=== PATIENT | female | born 1935 | race Caucasian/White ===

== ENCOUNTER 2018-02-14 17:14 | Emergency (ER) | payer MEDICARE, OTHER ==
[~2018-02-14] VITALS: Ht 147.3 cm; Wt 49.0 kg
[~2018-02-14 17:14] MED LIST: ASPI-1152 GT; ATRO2DRO4 LEFTEYE; BRIN10DR EACHEYE; BUSP5TAB PO; Blood Sugar Diagnostic IN; CARB200T39 GT; CHOL100044 PO; CYAN500T4 PO; DONE5TAB34 GT; ENAL10TA GT; INSU100I19 SQ; MEMA1TAB PO; NITR100C6 GT; NUT.100029 GT; POTA20PA34 GT; TIMO5DRO18 EACHEYE
--- NOTE | 2018-02-14 17:40 | NUR ---
BIB DAUGHTER C/O CONGESTION X 1 MONTH, WORSENING TODAY. VSS. WAITING FOR EVAL. FAMILY REMAINS AT BS. IV ACCESS STARTED. SAFETY AND COMFORT MEASURES PROVIDED. WILL MONITOR.
--- NOTE | 2018-02-14 19:01 | NUR ---
REPORT RECEIVED FROM RADHA ANTONIO FOR BROWN.
--- NOTE | 2018-02-14 20:55 | NUR ---
IV removed. Catheter intact and site benign. Pressure and 4x4 applied to site. No bleeding noted. Patient discharged to home in stable condition. Written and verbal after care instructions given. Patient verbalizes understanding of instruction. Ambulatory ambulatory with a steady gait.
[2018-02-14 20:57] VITALS: BP 128/83
[2018-05-23] MEDS ORDERED: AMLO2.5T3 GT (22:48)
== END 2018-02-14 20:57 | disposition home or self-care (01) ==
LOC: ER 17:15
DX: G93.40 Encephalopathy, unspecified (principal); R05 Cough; G30.9 Alzheimer's disease, unspecified; F02.80 Dementia in other diseases classified elsewhere, unspecified severity, without behavioral disturbance, psychotic disturbance, mood disturbance, and anxiety; E11.9 Type 2 diabetes mellitus without complications; I10 Essential (primary) hypertension; Z79.4 Long term (current) use of insulin; Z79.82 Long term (current) use of aspirin; Z90.710 Acquired absence of both cervix and uterus
CPT/HCPCS: 71045-TC; A4606; Z7610

== ENCOUNTER 2018-05-21 16:30 | Inpatient (IN) | payer MEDICARE, MEDICAID ==
[~2018-05-21] VITALS: Ht 149.9 cm; Wt 46.3 kg
--- NOTE | 2018-05-21 16:30 | NUR ---
NAUSEA AND VOMITING SINCE LAST NIGHT, NAD NOTED, VSS, RESP EVEN AND UNLABORED. PT WAS PUT ON MONITOR, AT BS.
[2018-05-21 17:53] LABS: BASOPHILS % (AUTO) 0.2 % (0.0-2.0); HEMATOCRIT 40 % (33-45); HEMOGLOBIN 13.2 g/dL (11.5-14.8); LYMPHOCYTES # (AUTO) 1.1 /CMM (0.8-4.8); LYMPHOCYTES % (AUTO) 6.7 % (20.0-44.0); MEAN CORPUSCULAR HEMOGLOBIN 32 PG (26.0-33.0); MEAN CORPUSCULAR HGB CONC 33 g/dl (31.0-36.0); MEAN CORPUSCULAR VOLUME 98 fL (82-100); MONOCYTES # (AUTO) 0.9 /CMM (0.1-1.30); MONOCYTES % (AUTO) 5.4 % (2.0-12.0); NEUTROPHILS # (AUTO) 14.8 /CMM (1.8-8.9); NEUTROPHILS % (AUTO) 87.7 % (43.0-81.0); PLATELET COUNT (AUTO) 227 /CMM (150-450); RDW COEFFICIENT OF VARIATION 14.2 (11.5-15.0); RED BLOOD CELL COUNT(AUTO) 4.13 MIL/uL (4.0-5.2); WHITE BLOOD COUNT (AUTO) 16.8 K/uL (4.3-11.0)
[2018-05-21 17:59] LABS: APPEARANCE,URINE TURBID (CLEAR); BILIRUBIN,URINE 2+ (NEGATIVE); BLOOD, URINE NEGATIVE Ery/uL (NEGATIVE); COLOR,URINE DARK YELLO (YELLOW); KETONES,URINE TRACE (NEGATIVE); LEUKOCYTE ESTERASE ,URINE 1+ (NEGATIVE); NITRITE, URINE POSITIVE (NEGATIVE); PH,URINE 6.5 (5.0-8.0); PROTEIN,URINE 1+ mg/dl (NEGATIVE); UGLUCOSE NEGATIVE (NEGATIVE)
[2018-05-21 18:10] LABS: CARBON DIOXIDE 25 mmol/L (21-32); CHLORIDE 98 mmol/L (98-107); CREATININE 0.9 mg/dL (0.6-1.3); GLUCOSE 151 mg/dL (74-106); POTASSIUM 4.1 mmol/L (3.5-5.1); SODIUM SERUM 131 mmol/L (136-145); UREA NITROGEN, BLOOD 22 mg/dL (7-18)
[2018-05-21 18:11] LABS: ALANINE AMINOTRANSFERASE 228 U/L (12-78); ALBUMIN 3.1 g/dL (3.4-5.0); ALKALINE PHOSPHATASE 124 U/L (46-116); ASPARTATE AMINOTRANSFERASE 127 U/L (15-37); BILIRUBIN,DIRECT 1.2 mg/dL (0.0-0.2); BILIRUBIN,TOTAL 2.1 mg/dL (0.2-1.0); TOTAL PROTEIN, SERUM 7.7 g/dL (6.4-8.2)
[2018-05-21 18:21] LABS: INR 1.06 (0.87-1.13)
[2018-05-21 18:25] LABS: BACTERIA,URINE Many /HPF (None Seen); RBC,URINE 0-2 /HPF (0-2); SQUAMOUS EPITHELIAL CELL,UR Few /HPF (None Seen)
[2018-05-21 18:32] LABS: TROPONIN I < 0.017 ng/mL (0.00-0.056)
[2018-05-21] MEDS ORDERED: PIPERACILLIN /TAZOBACTAM 3.375 G in IV D5W 50 ML IV ONE (19:00)
[2018-05-21] MEDS ORDERED: IV NS 0.9% 1,000 ML BAG IV ONE (19:00)
[2018-05-21] MEDS ORDERED: PIPERACILLIN /TAZOBACTAM 3.375 G VIAL IV ONE (19:03)
--- NOTE | 2018-05-21 19:28 | NUR ---
CALLED NURSE SUP FOR TELE BED
--- NOTE | 2018-05-21 20:24 | NUR ---
CALLED [facility] FOR PANEL CALL AND NARCISA GOMEZ WAS PAGED
--- NOTE | 2018-05-21 21:05 | NUR ---
RECEIVED PATIENT FROM ED WITH FAMILY BY HER SIDE. PATIENT WAS HELPED TO BE PLACED FROM GURNEY TO THE BED, VSS, LOW GRADE FEVER, SAT. 96% ON ROOM AIR
[2018-05-21 21:30] VITALS: BP 157/97
[2018-05-21] MEDS ORDERED: MAGNESIUM HYDROXIDE 30 ML UDC PO PRN (21:30)
[2018-05-21] MEDS ORDERED: Z GUARD REMEDY 2 OZ OINT TP PRN (21:30)
[2018-05-21] MEDS ORDERED: MORPHINE SULFATE INJ 2 MG/ML DISP.SYRIN IV PRN (21:30)
[2018-05-21] MEDS ORDERED: MAG HYDROX/AL HYDROX/SIMETH 30 ML UDC PO PRN (21:30)
[2018-05-21] MEDS ORDERED: HYDROCODONE/APAP 5/325MG 1 EACH TABLET PO PRN (21:30)
[2018-05-21] MEDS ORDERED: ACETAMINOPHEN 325 MG TABLET PO PRN (21:30)
[2018-05-21] MEDS ORDERED: ONDANSETRON HCL/PF 4 MG/2 ML VIAL IVP PRN (21:30)
[2018-05-21] MEDS ORDERED: MEROPENEM 500 MG VIAL IV ONE (21:37)
--- NOTE | 2018-05-21 21:40 | NUR ---
ADMISSION PROFILE STARTED, FAMILY TO BRING PATIENT'S HOME MEDS LIST FROM HOME TOMORROW
[2018-05-21] MEDS: MEROPENEM 500 MG in IV NS 0.9% 50 ML IV SCH (22:15)
[2018-05-21] MEDS: IV NS 0.9% 1,000 ML IV PRN (22:15)
[2018-05-22] VITALS (8 sets, daily range): BP systolic 139–180; BP diastolic 70–93
[2018-05-22] MEDS: MEROPENEM 500 MG in IV NS 0.9% 50 ML IV SCH ×2 (04:32→16:03)
[2018-05-22 06:16] LABS: HEMATOCRIT 37 % (33-45); HEMOGLOBIN 12.5 g/dL (11.5-14.8); LYMPHOCYTES # (AUTO) 0.7 /CMM (0.8-4.8); LYMPHOCYTES % (AUTO) 3.8 % (20.0-44.0); MEAN CORPUSCULAR HEMOGLOBIN 33 PG (26.0-33.0); MEAN CORPUSCULAR HGB CONC 34 g/dl (31.0-36.0); MEAN CORPUSCULAR VOLUME 97 fL (82-100); MONOCYTES # (AUTO) 0.8 /CMM (0.1-1.30); MONOCYTES % (AUTO) 4.3 % (2.0-12.0); NEUTROPHILS # (AUTO) 17.7 /CMM (1.8-8.9); NEUTROPHILS % (AUTO) 91.9 % (43.0-81.0); PLATELET COUNT (AUTO) 221 /CMM (150-450); RDW COEFFICIENT OF VARIATION 13.9 (11.5-15.0); RED BLOOD CELL COUNT(AUTO) 3.84 MIL/uL (4.0-5.2); WHITE BLOOD COUNT (AUTO) 19.3 K/uL (4.3-11.0)
[2018-05-22 06:26] LABS: ALANINE AMINOTRANSFERASE 174 U/L (12-78); ALKALINE PHOSPHATASE 114 U/L (46-116); ASPARTATE AMINOTRANSFERASE 59 U/L (15-37); BILIRUBIN,DIRECT 0.9 mg/dL (0.0-0.2); BILIRUBIN,TOTAL 1.4 mg/dL (0.2-1.0); CARBON DIOXIDE 26 mmol/L (21-32); CHLORIDE 98 mmol/L (98-107); CREATININE 0.7 mg/dL (0.6-1.3); GLUCOSE 166 mg/dL (74-106); LIPASE 1149 U/L (73-393); MAGNESIUM 1.6 mg/dL (1.8-2.4); PHOSPHORUS 1.8 mg/dL (2.5-4.9); POTASSIUM 3.1 mmol/L (3.5-5.1); SODIUM SERUM 133 mmol/L (136-145); TOTAL PROTEIN, SERUM 7.6 g/dL (6.4-8.2); UREA NITROGEN, BLOOD 10 mg/dL (7-18)
[2018-05-22 06:34] LABS: CHOLESTEROL 145 mg/dL (<200); HDL CHOLESTEROL 41 mg/dL (40-60); LDL 84 mg/dL (0-99); THYROID STIMULATING HORMONE 0.861 uIU/mL (0.358-3.74); TRIGLYCERIDES 81 mg/dL (30-150)
--- NOTE | 2018-05-22 08:06 | NUR ---
SENIOR NAVAL PARACHUTIST OPENING NOTES RECEIVED PT FROM NIGHTSNCFT NURSE IN STABLE CONDITION. PT IS NONVERBAL, OBTUNDENT, RESPONSIVE TO TACTILE STIMULI. NO SOB OR SIGNS OF DISTRESS NOTED. BREATHING IS EVEN AND UNLABORED. IV TO RIGHT HAND NOTED TO BE PATENT AND INTACT. NO REDNESS OR SIGNS OF INFILTRATION NOTED. PT TOLERATING NS INFUSION WELL. GTUBE NOTED TO BE PATENT AND INTACT. PLACEMENT VERIFIED VIA AUSCULTATION. BED IN LOW LOCKED POSITION, SIDE RAILS UP X3, CALL LIGHT WITHIN REACH, BED ALARM ON. WILL CONTINUE TO MONITOR Addendum: 05/22/18 at 0809 by ANY [place] RN PT SR ON THE TELE MONITOR WITH A HR OF 79
[2018-05-22] MEDS: PANTOPRAZOLE 40 MG VIAL IV SCH (08:46)
[2018-05-22] MEDS: IV NS 0.9% 1,000 ML IV PRN (09:00)
[2018-05-22] MEDS ORDERED: PILO15DR36 EACHEYE (09:02)
[2018-05-22] MEDS: POTASSIUM CL. PREMIX PERIPHER. 50 ML IV SCH ×4 (10:29→14:07)
[2018-05-22] MEDS ORDERED: INSU100I19 SQ (10:31)
[2018-05-22] MEDS ORDERED: NUT.237L28 GT (10:31)
[2018-05-22] MEDS ORDERED: MEMA10TA GT (10:31)
[2018-05-22] MEDS: Magnesium 1GM/D5W 100ML PREMIX 100 ML IV SCH ×2 (11:05→12:56)
[2018-05-22] MEDS ORDERED: DEXTROSE 50%-WATER 50 ML DISP.SYRIN IV PRN (14:00)
[2018-05-22] MEDS ORDERED: ONDANSETRON HCL/PF 4 MG/2 ML VIAL IVP PRN (14:30)
--- NOTE | 2018-05-22 15:49 | NUR ---
GEAR HOBBER OPERATOR NOTES: MRCP F/U HEAD OF GEOGRAPHY CALLED TO INFORM THAT PT'S MRCP IS STILL PENDING APPROVAL AND THAT THE SCAN WILL BE COMPLETED TOMORROW MORNING THE TECH IN CHARGE OF UPLOADING THE IMAGE IS GONE FOR THE DAY
[2018-05-22] MEDS ORDERED: NEUTRA PHOS 1 POWD.PACKET NG ONE (16:00)
[2018-05-22] MEDS ORDERED: Sodium Phosphate 15 MMOL in IV D5W 250 ML IV ONE (16:00)
[2018-05-22] MEDS: PILOCARPINE 2% OPTH DROP 15 ML BOTTLE EACHEYE SCH (16:03)
[2018-05-22] MEDS: TIMOLOL 0.5% SOLN OPHTH 5 ML BOTTLE EACHEYE SCH (16:04)
[2018-05-22] MEDS: BLOOD SUGAR DIAGNOSTIC 1 EACH STRIP IN SCH ×2 (16:47→21:56)
[2018-05-22] MEDS: INSULIN REGULAR, HUMAN 100 UNIT/ML 3 ML VIAL SQ PRN ×2 (16:49→21:58)
--- NOTE | 2018-05-22 18:54 | NUR ---
SHRIMP TRAWLER CAPTAIN CLOSING NOTES PT REMAINS STABLE. ALL NEEDS WERE MET DURING SHIFT AND ORDERS CARRIED OUT ACCORDINGLY. ALL DUE MEDS GIVEN. PT WAS REPOSITIONED AND TURNED Q2HR PER PROTOCOL. ANAYA CATHETER RENDERED. CATHETER REMAINS INTACT AND CONTINUES TO DRAIN JOHANA COLORED URINE. IV REMAINS PATENT AND INTACT. ELECTROLYTES REPLACED DURING SHIFT. IV REMAINS PATENT AND INTACT. SHE REMAINS SR ON THE TELE MONITOR. SAFETY MEASURES REMAIN IN PLACE. PT'S AT BEDSIDE. WILL ENDORSE TO NIGHTSHIFT NURSE FOR BROWN
[2018-05-23] VITALS: BP 164/82
[2018-05-23 04:00] VITALS: BP 181/97
[2018-05-23] MEDS: MEROPENEM 500 MG in IV NS 0.9% 50 ML IV SCH (05:04)
[2018-05-23] MEDS: IV NS 0.9% 1,000 ML IV PRN (05:07)
--- NOTE | 2018-05-23 06:45 | NUR ---
RN CLOSING NOTES patient with no acute distress observed overnight. Remains SR at 70-80s. GT clamped, no Nausea/vomiting observed. oral cavity suctioned as needed, airway kept clear. Aspiration precaution observed. IVF as ordered. ATB given as ordered. F/C intact. Patient turned and repositioned [id number] and PRN. Safety and comfort ensured. needs anticipated. will endorse accordingly for continuity of care.
[2018-05-23 06:49] LABS: CALCIUM, SERUM 7.7 mg/dL (8.5-10.1); CARBON DIOXIDE 25 mmol/L (21-32); CHLORIDE 94 mmol/L (98-107); CREATININE 0.6 mg/dL (0.6-1.3); GLUCOSE 157 mg/dL (74-106); MAGNESIUM 2.2 mg/dL (1.8-2.4); PHOSPHORUS 1.6 mg/dL (2.5-4.9); POTASSIUM 3.2 mmol/L (3.5-5.1); SODIUM SERUM 128 mmol/L (136-145); UREA NITROGEN, BLOOD 7 mg/dL (7-18)
--- NOTE | 2018-05-23 07:15 | NUR ---
TELE/RN INITIAL NOTES RECEIVED PT IN BED. ASLEEP. AROUSABLE TO LIGHT TOUCH. SR ON TELEMONITOR. TOLERATING ROOM AIR WELL, NO SOB NOTED. NO SIGNS OF PAIN NOTED. GT CLAMPED AND INTACT. WITH ONGOING IVF NS AT 75 ML/HR INFUSING WELL ON RHAND. NO SIGNS OF INFECTION NOTED. HOB ELEVATED. SAFETY MEASURES OBSERVED. CALL LIGHT WITHIN REACH. WILL CONT TO MONITOR
--- NOTE | 2018-05-23 07:30 | NUR ---
RN NOTES INSULIN COVERAGE FOR BS 169 HELD, PT ON NPO
[2018-05-23] MEDS: BLOOD SUGAR DIAGNOSTIC 1 EACH STRIP IN SCH ×4 (07:47→22:17)
[2018-05-23 08:00] VITALS: BP 160/76
[2018-05-23 08:43] LABS: BILIRUBIN,DIRECT 0.2 mg/dL (0.0-0.2); BILIRUBIN,TOTAL 0.7 mg/dL (0.2-1.0); TOTAL PROTEIN, SERUM 7.9 g/dL (6.4-8.2)
[2018-05-23] MEDS ORDERED: INSULIN DETEMIR 100 UNIT/ML CARTRIDGE SQ SCH (09:00)
[2018-05-23] MEDS: INSULIN GLARGINE, 100 UNIT/ML CARTRIDGE SQ SCH (09:00)
--- NOTE | 2018-05-23 09:00 | NUR ---
RN NOTES HELD ROUTINE LANTUS, PT ON NPO
[2018-05-23] MEDS: ATROPINE SULFATE OPHTH SOLN 15 ML BOTTLE LEFTEYE SCH (09:02)
[2018-05-23] MEDS: PILOCARPINE 2% OPTH DROP 15 ML BOTTLE EACHEYE SCH ×3 (09:02→16:35)
[2018-05-23] MEDS: TIMOLOL 0.5% SOLN OPHTH 5 ML BOTTLE EACHEYE SCH ×2 (09:02→16:35)
[2018-05-23] MEDS: PANTOPRAZOLE 40 MG VIAL IV SCH (09:18)
--- NOTE | 2018-05-23 10:40 | NUR ---
RN NOTES PT WAS PICKED UP BY RED CROSS WORKER FOR MRCP PROCE IN STABLE CONDITION
--- NOTE | 2018-05-23 11:45 | NUR ---
RN NOTES RECEIVED CALL FROM RADIOLOGY, PER TECH, MRCP PROCEDURE UNSUCCESSFUL, UNABLE TO GET CLEAR IMAGES SECONDARY PT CANNOT HOLD BREATH. NOTIFIED DR JIN RE: UNSUCCESSFUL MRCP, ORDERED: CBC AND CMP
--- NOTE | 2018-05-23 11:50 | NUR ---
RN NOTES PT CAME BACK FROM RADIOLOGY IN STABLE CONDITION
[2018-05-23 12:00] VITALS: BP 161/75
--- NOTE | 2018-05-23 12:00 | NUR ---
RN NOTES INSULIN COVERAGE FOR BS 162 HELD, PT ON NPO
[2018-05-23 12:10] LABS: BASOPHILS % (AUTO) 0.1 % (0.0-2.0); HEMATOCRIT 40 % (33-45); HEMOGLOBIN 13.1 g/dL (11.5-14.8); LYMPHOCYTES % (AUTO) 6.4 % (20.0-44.0); MEAN CORPUSCULAR HEMOGLOBIN 32 PG (26.0-33.0); MEAN CORPUSCULAR HGB CONC 33 g/dl (31.0-36.0); MEAN CORPUSCULAR VOLUME 99 fL (82-100); MONOCYTES # (AUTO) 0.7 /CMM (0.1-1.30); MONOCYTES % (AUTO) 4.2 % (2.0-12.0); NEUTROPHILS # (AUTO) 14.6 /CMM (1.8-8.9); NEUTROPHILS % (AUTO) 89.3 % (43.0-81.0); PLATELET COUNT (AUTO) 214 /CMM (150-450); RDW COEFFICIENT OF VARIATION 14.2 (11.5-15.0); RED BLOOD CELL COUNT(AUTO) 4.04 MIL/uL (4.0-5.2); WHITE BLOOD COUNT (AUTO) 16.3 K/uL (4.3-11.0)
[2018-05-23] MEDS: CEFTRIAXONE 1 G in IV D5W 50 ML IV SCH (12:35)
[2018-05-23] MEDS: POTASSIUM CL. PREMIX PERIPHER. 50 ML IV SCH ×4 (13:12→16:36)
[2018-05-23 16:00] VITALS: BP 172/98
[2018-05-23] MEDS ORDERED: Sodium Phosphate 15 MMOL in IV D5W 250 ML IV ONE (17:00)
[2018-05-23] MEDS: INSULIN REGULAR, HUMAN 100 UNIT/ML 3 ML VIAL SQ PRN ×2 (18:12→22:21)
--- NOTE | 2018-05-23 19:20 | NUR ---
TELE/RN NOTES RECEIVED PT. LYING IN BED. PT. IS RESTING, EASILY AROUSABLE TO TOUCH. PT. IS NON-VERBAL, OPENS EYES. BREATHING EVEN AND UNLABORED ON ROOM AIR. NO SOB, RESPIRATORY DISTRESS OR S/S/ OF PAIN NOTED AT THIS TIME. PT. WITH EXTERNAL INBOUND CUSTOMER SERVICE REPRESENTATIVE PRESENT AND INTACT. CURRENT RHYTHM = SINUS RHYTHM HR 76. PT. WITH FAMILY MEMBER PRESENT AT BEDSIDE. BED LOCKED AND IN LOWEST POSITION, SIDE RAILS UP X3, BED ALARM ON, WILL CONTINUE TO MONITOR.
--- NOTE | 2018-05-23 19:30 | NUR ---
TELE/RN CLOSING NOTES PT REMAINED STABLE. NO ACUTE DISTRESS NOTED THROUGHOUT SHIFT. SAFETY MEASURES AND ASPIRATION PRECAUTION OBSERVED AT ALL TIMES. ALL NEEDS ANTICIPATED. ENDORSED TO PM SHIFT RN FOR BROWN
[2018-05-23 20:00] VITALS: BP_SYST 172; BP_SYST 188; BP_DIAS 88; BP_DIAS 94
--- NOTE | 2018-05-23 21:05 | NUR ---
TELE/RN NOTES CALLED AND NOTIFIED EPIC PRESIDENT & FOUNDER GUICHO GOMEZ PT. HAS ELEVATED BLOOD PRESSURE 170'S - 180'S SYSTOLIC. CURRENT BP 175/97 HR 78. PT. NAOMIE PRESENT AT BEDSIDE STATED PT. TAKES BLOOD PRESSURE MEDICATION AT HOME BUT DOES NOT KNOW THE NAME OR DOSAGE. HE STATES HE WILL CALL BACK LATER TONIGHT WITH THE NAMES AND DOSAGES OF THE MEDICATION. PER GUICHO GOMEZ NEW ORDER: 10MG HYDRALAZINE IV PUSH ONE TIME NOW. Francesca SOARES CARRY OUT ORDER. WILL CONTINUE TO MONITOR.
[2018-05-23] MEDS ORDERED: hydrALAZINE HCL IV 20 MG VIAL IV ONE (21:30)
[2018-05-23] MEDS ORDERED: AMLO2.5T GT (22:48)
[2018-05-24] VITALS: BP 122/83
[2018-05-24 04:00] VITALS: BP 157/93
[2018-05-24] MEDS: IV NS 0.9% 1,000 ML IV PRN (06:10)
--- NOTE | 2018-05-24 06:41 | NUR ---
TELE/RN NOTES PT. IS LYING IN BED RESTING, EASILY AROUSABLE TO TOUCH. BREATHING EVEN AND UNLABORED ON ROOM AIR. NO SOB, RESPIRATORY DISTRESS OR S/S/ OF PAIN NOTED AT THIS TIME AND THROUGHOUT SHIFT. PT. WITH EXTERNAL LEGAL MANAGER PRESENT AND INTACT. CURRENT RHYTHM = SINUS RHYTHM HR 85. ALL PT. NEEDS MET. PT. OFFLOADED, TURNED AND REPOSITIONED Q2H AND NEEDED. BED LOCKED AND IN LOWEST POSITION, SIDE RAILS UP X3, BED ALARM ON, WILL ENDORSE TO DAYSHIFT NURSE FOR CONTINUITY OF CARE.
[2018-05-24 07:04] LABS: BASOPHILS # (AUTO) 0.1 /CMM (0.0-0.2); BASOPHILS % (AUTO) 0.6 % (0.0-2.0); EOSINOPHILS % (AUTO) 0.1 % (0.0-6.0); HEMATOCRIT 38 % (33-45); HEMOGLOBIN 12.8 g/dL (11.5-14.8); LYMPHOCYTES # (AUTO) 1.2 /CMM (0.8-4.8); LYMPHOCYTES % (AUTO) 12.3 % (20.0-44.0); MEAN CORPUSCULAR HEMOGLOBIN 32 PG (26.0-33.0); MEAN CORPUSCULAR HGB CONC 34 g/dl (31.0-36.0); MEAN CORPUSCULAR VOLUME 96 fL (82-100); MONOCYTES % (AUTO) 9.6 % (2.0-12.0); NEUTROPHILS # (AUTO) 7.8 /CMM (1.8-8.9); NEUTROPHILS % (AUTO) 77.4 % (43.0-81.0); PLATELET COUNT (AUTO) 236 /CMM (150-450); RDW COEFFICIENT OF VARIATION 13.7 (11.5-15.0); RED BLOOD CELL COUNT(AUTO) 3.96 MIL/uL (4.0-5.2); WHITE BLOOD COUNT (AUTO) 10.1 K/uL (4.3-11.0)
[2018-05-24 07:29] LABS: ALANINE AMINOTRANSFERASE 80 U/L (12-78); ALBUMIN 2.9 g/dL (3.4-5.0); ALKALINE PHOSPHATASE 91 U/L (46-116); ASPARTATE AMINOTRANSFERASE 15 U/L (15-37); BILIRUBIN,DIRECT 0.2 mg/dL (0.0-0.2); BILIRUBIN,TOTAL 0.6 mg/dL (0.2-1.0); CARBON DIOXIDE 24 mmol/L (21-32); CHLORIDE 94 mmol/L (98-107); CREATININE 0.5 mg/dL (0.6-1.3); GLUCOSE 165 mg/dL (74-106); LIPASE 474 U/L (73-393); MAGNESIUM 2.1 mg/dL (1.8-2.4); PHOSPHORUS 1.6 mg/dL (2.5-4.9); POTASSIUM 2.9 mmol/L (3.5-5.1); SODIUM SERUM 128 mmol/L (136-145); TOTAL PROTEIN, SERUM 7.5 g/dL (6.4-8.2); UREA NITROGEN, BLOOD 11 mg/dL (7-18)
[2018-05-24] MEDS: BLOOD SUGAR DIAGNOSTIC 1 EACH STRIP IN SCH ×4 (07:43→21:08)
[2018-05-24] MEDS: INSULIN REGULAR, HUMAN 100 UNIT/ML 3 ML VIAL SQ PRN ×4 (07:50→21:10)
[2018-05-24 08:00] VITALS: BP 170/90
--- NOTE | 2018-05-24 08:00 | NUR ---
DANIELLE RN NOTES RECEIVED BEDSIDE REPORT FROM AM NURSE. PATIENT IN BED, A/OX1, NON VERBAL. FAMILY MEMBERS AT BEDSIDE. PATIENT IS ON RA WITH SPO2 OF98%, NO SOB, NO DISCOMFORT NOTED AT THIS TIME.SR ON DAYCARE WORKER WITH HR OF 83.PT IS TURNED AND REPOSITIONED Q2HR. PT HAS ANAYA CATHETER IN PLACE DRAINING ON GRAVITY.PATIENT'S IV LINE IS INFILTRATED AND REMOVED.NEW IV LINE STARTING WAS UNSUCCESSFUL , WE TRIED MULTIPLE TIME . ICU NURSE CAME AND WAS ABLE TO START NEW IV LINE ON RIGHT HAND 20G AND AFTER THAT IV ANTIBIOTIC AND POTASSIUM CHLORIDE STARTED TO BE ADMINISTERED. GT FEEDING STARTED BY MD ORDER, PATIENT TOLERATING WELL WITH RESIDUAL OF 50ML. WOUND CARE AND TEACHING PROVIDER. ALL NEEDS ARE ASSESSED. ALL SAFETY MEASURES ARE IMPLEMENTED, BED IN LOW, LOCKED POSITION, CALL LIGHT IN REACH. WILL CONT. TO MONITOR.
--- NOTE | 2018-05-24 08:25 | NUR ---
RN NOTES ENDORSED TO RADHA CARRIZALES FOR BROWN
[2018-05-24] MEDS: ATROPINE SULFATE OPHTH SOLN 15 ML BOTTLE LEFTEYE SCH (09:57)
[2018-05-24] MEDS: PILOCARPINE 2% OPTH DROP 15 ML BOTTLE EACHEYE SCH ×3 (09:57→17:13)
[2018-05-24] MEDS: PANTOPRAZOLE 40 MG VIAL IV SCH (09:58)
[2018-05-24] MEDS: TIMOLOL 0.5% SOLN OPHTH 5 ML BOTTLE EACHEYE SCH ×2 (09:58→17:13)
[2018-05-24] MEDS: INSULIN GLARGINE, 100 UNIT/ML CARTRIDGE SQ SCH (10:03)
[2018-05-24] MEDS ORDERED: CLONIDINE HCL 0.1 MG TABLET GT ONE (11:00)
[2018-05-24] MEDS: GLUCERNA 1.2 1,000 ML BOTTLE GT PRN (11:26)
[2018-05-24] MEDS: CEFTRIAXONE 1 G in IV D5W 50 ML IV SCH (11:55)
[2018-05-24 12:00] VITALS: BP_SYST 136; BP_SYST 173; BP_DIAS 60; BP_DIAS 95
[2018-05-24] MEDS: POTASSIUM CL. PREMIX PERIPHER. 50 ML IV SCH ×5 (14:40→19:11)
[2018-05-24 16:00] VITALS: BP_SYST 128; BP_SYST 136; BP_DIAS 60; BP_DIAS 76
[2018-05-24] MEDS ORDERED: NEUTRA PHOS 1 POWD.PACKET GT ONE (16:00)
[2018-05-24 18:48] LABS: URINE SODIUM, RANDOM 69 mmol/l (40-220)
[2018-05-24 18:57] LABS: OSMOLALITY,URINE 570 mOS/kg (340-1090)
--- NOTE | 2018-05-24 19:30 | NUR ---
TELE/RN NOTES: RECEIVED PT. IN BED W/ HOB ELEVATED. NO FACIAL GRIMACES OR MOANING NOTED. ON TELE MONITOR W/ SR @ 86. W/ GTF TOLERATING WELL W/ NO RESIDUAL NOTED. W/ IVF GOING W/ NO S/S OF INFECTION/INFILTRATION NOTED. HAS A RIGHT BASILIC VEIN 18 G MIDLINE. Addendum: 05/25/18 at 0434 by FLORIDALMA NICHOLSON RN FAMILY PRESENT AT BEDSIDE. ALL NEEDS MEET. WILL CONTINUE TO MONITOR.
[2018-05-24 20:00] VITALS: BP 110/64
[2018-05-25] VITALS: BP 140/92
[2018-05-25 04:00] VITALS: BP_SYST 140; BP_SYST 183; BP_DIAS 91; BP_DIAS 92
[2018-05-25] MEDS: IV NS 0.9% 1,000 ML IV PRN (05:30)
[2018-05-25 07:00] LABS: CALCIUM, SERUM 7.6 mg/dL (8.5-10.1); CARBON DIOXIDE 23 mmol/L (21-32); CHLORIDE 98 mmol/L (98-107); CREATININE 0.8 mg/dL (0.6-1.3); GLUCOSE 218 mg/dL (74-106); PHOSPHORUS 1.3 mg/dL (2.5-4.9); POTASSIUM 3.9 mmol/L (3.5-5.1); SODIUM SERUM 132 mmol/L (136-145); UREA NITROGEN, BLOOD 14 mg/dL (7-18)
--- NOTE | 2018-05-25 07:15 | NUR ---
DISPENSING OPTICIAN INITIAL NOTES RECEIVED REPORT AND PATIENT FROM PM NURSE, PT RESTING IN BED WITH NO ACUTE DISTRESS OR SHORTNESS OF BREATHE, ON MECHANICAL VENT SETTINGS ORDERED BY MD SAT ABOVE 97%, A&O X1-2 EYES OPENS AT TIMES, TONGUE PROTRUDES, ON HAND CARVER WITH HEART RATE 87, ANAYA CATH ETER DRAINING URINE VIA GRAVITY, GASTRIC TUBE FEEDING RUNNING GLUCERNA @ 50 ML/HR NO RESIDUAL NOTED, RIGHT HAND 20 G IV RUNNING NS @ 75 ML/HR MD ORDERED PATENT AND INTACT NO INFILTRATION NOTED, RIGHT BASILIC VEIN 18 G MIDLINE INTACT AND PATENT NO INFILTRATION NOTED, KCI MATTRESS, ALL NEEDS MET, ALL SAFETY MEASURES INITIATED, SIDE RAILS X2, BED LOW AND LOCKED, CALL LIGHT WITHIN REACH, TURN AND REPO Q2HRS, WILL CONTINUE TO MONITOR.
--- NOTE | 2018-05-25 07:27 | NUR ---
TELE/RN NOTES: REPORT GIVEN TO AM NURSE FOR BROWN.
[2018-05-25 08:00] VITALS: BP 183/102
[2018-05-25] MEDS: PILOCARPINE 2% OPTH DROP 15 ML BOTTLE EACHEYE SCH ×3 (08:42→17:02)
[2018-05-25] MEDS: TIMOLOL 0.5% SOLN OPHTH 5 ML BOTTLE EACHEYE SCH ×2 (08:42→17:02)
[2018-05-25] MEDS: BLOOD SUGAR DIAGNOSTIC 1 EACH STRIP IN SCH ×4 (08:42→21:49)
[2018-05-25] MEDS: ATROPINE SULFATE OPHTH SOLN 15 ML BOTTLE LEFTEYE SCH (08:42)
[2018-05-25] MEDS: PANTOPRAZOLE 40 MG VIAL IV SCH (08:42)
[2018-05-25] MEDS: INSULIN REGULAR, HUMAN 100 UNIT/ML 3 ML VIAL SQ PRN ×2 (08:55→12:25)
[2018-05-25] MEDS: INSULIN GLARGINE, 100 UNIT/ML CARTRIDGE SQ SCH (08:55)
[2018-05-25] MEDS: GLUCERNA 1.2 1,000 ML BOTTLE GT PRN (09:02)
[2018-05-25] MEDS ORDERED: Sodium Phosphate 15 MMOL in IV D5W 250 ML IV ONE (10:00)
[2018-05-25] MEDS: CLONIDINE HCL 0.1 MG TABLET GT PRN (10:11)
--- NOTE | 2018-05-25 10:30 | NUR ---
ACCESS TECH NOTES CLONIDINE 0.1 MG GIVEN PO VIA GASTRIC TUBE BP 189/94, WILL CONTINUE TO MONITOR, MD SKINNER AWARE.
[2018-05-25] MEDS ORDERED: CEPH-569 PO (11:59)
[2018-05-25 12:00] VITALS: BP 169/80
[2018-05-25] MEDS ORDERED: CLONIDINE HCL 0.1 MG TABLET PO ONE (12:00)
[2018-05-25] MEDS: CEFTRIAXONE 1 G in IV D5W 50 ML IV SCH (12:19)
[2018-05-25] MEDS: AMLODIPINE BESYLATE 2.5 MG TABLET GT SCH ×2 (12:19→16:47)
[2018-05-25] MEDS: ENALAPRIL MALEATE (10 MG) 10 MG TABLET GT SCH ×2 (12:34→16:47)
--- NOTE | 2018-05-25 14:05 | NUR ---
HIGH LEAD YARDER NOTES PTS BP HIGHEST 189/101 RETOOK AND 169/89, GAVE BP MEDS PER MD ORDER AND PTS BP NOW IS 108/55 HR 89. WILL CONTINUE TO MONITOR UNTIL DC HOME
--- NOTE | 2018-05-25 14:41 | NUR ---
JOINT RUNNER NOTES PATIENT WAS PROVIDED BED BATH AND ALSO SACRUM SHOWED SLIGHT TEAR, TOOK PICTURE AND PLACED IN CHART, REMOVED RIGHT HAND 20 G IV, NO INFILTRATION NOTED, BELONGINGS LIST SIGNED AND COMPLETED, ALL DUE MEDS GIVEN PER MD ORDERED, ANAYA CATH REMOVED PER MD ORDER, 700 CC URINE OUTPUT NOTED, DIAPER CHANGED WITH NO BOWEL MOVEMENT NOTED. GTUBE INTACT, MIDLINE INTACT UNTIL AMBULANCE ARRIVES.
[2018-05-25] MEDS ORDERED: IV NS 0.9% 250 ML IV STA (15:27)
[2018-05-25 16:00] VITALS: BP 91/43
[2018-05-25] MEDS: MEMANTINE HCL 5 MG TABLET GT SCH (17:02)
--- NOTE | 2018-05-25 17:37 | NUR ---
CONTENT DEVELOPMENT SPECIALIST NOTES PER MD SKINNER TO CANCEL DISCHARGE ORDER SINCE PTS BP IS 95/45, LOWEST 80/45, PTS FAMILY DOES NOT FEEL COMFORTABLE WITH DC HOME, BOLUS 250 CC ALREADY GIVEN PER MD ORDER, PTS FAMILY AWARE THAT PATIENT WILL NOT LEAVE TODAY.
--- NOTE | 2018-05-25 18:14 | NUR ---
INGOT STRIPPER NOTES REMOVED PATIENTS ANAYA CATH PER MD ORDER AND PATIENTS FAMILY REFUSES TO PUT ON ANAYA CATH, DIAPER IS PLACED ON PATIENT.
--- NOTE | 2018-05-25 18:21 | NUR ---
CRIMINAL INTELLIGENCE SPECIALIST ENDING NOTES PATIENT STABLE AND NO ACUTE DISTRESS, LAST BP 95/45, O2 100% ON ROOM AIR, HEART RATE 71 ON TELE MONITOR, ALL DUE MEDS GIVEN, ALL NEEDS MET, HOLD BP MEDS AT THIS TIME, BED BATH PROVIDED, DC PAPERWORK SIGNED, EXIT CARE GIVEN, MED PRESCRIPTION SENT TO [facility] FOR NEW PRESCRIPTION, ANAYA CATH REMOVED AND DOES NOT WANT NEW ONE INSERTED, ALL NEEDS MET, SPOKE WITH ANGEL DAUGHTER AT BEDSIDE AND STATED WANTS BLOOD PRESSURE TO BE ABOVE 100 SYSTOLIC TO GO HOME, WILL EVALUATE TOMORROW IF PT WILL BE GOING HOME.
[2018-05-25] MEDS ORDERED: IV NS 0.9% 1,000 ML IV PRN (19:00)
[2018-05-25 20:00] VITALS: BP 110/80
[2018-05-26] VITALS: BP 124/74
[2018-05-26 04:00] VITALS: BP 127/68
--- NOTE | 2018-05-26 06:56 | NUR ---
RN NOTE PATIENT IS STABLE, NO ACUTE CHANGES NOTED, ALL SAFETY MEASURES TAKEN, TURNED AND REPOSITIONED PATIENT EVERY 2 HOURS, WOUND CARE PROVIDED ORDERED, NO DISTRESS NOTED, WILL ENDORSE TO AM SHIFT TO CONTINUE CARE
--- NOTE | 2018-05-26 07:10 | NUR ---
KENO ATTENDANT/OPENING NOTES RECEIVED PT. A&OX1, OPENS EYES. BREATHING UNLABORED ON ROOM AIR. NO S/S OF ACUTE DISTRESS. IV FLUIDS RUNNING AT 75ML/HR. G TUBE FEEDING RUNNING AT 50 ML/HR. BED IS IN LOWEST, AND LOCKED POSITION. 2 SIDE RAILS UP, AND CALL LIGHT WITHIN REACH. ALL NEEDS MET AT THIS TIME.
[2018-05-26] MEDS: BLOOD SUGAR DIAGNOSTIC 1 EACH STRIP IN SCH ×2 (07:43→12:16)
[2018-05-26 08:00] VITALS: BP 180/110
[2018-05-26] MEDS: INSULIN REGULAR, HUMAN 100 UNIT/ML 3 ML VIAL SQ PRN ×2 (08:00→12:19)
--- NOTE | 2018-05-26 08:00 | NUR ---
RN NOTES PT.'S BP WAS ELEVATED 180/110. P.T
[2018-05-26] MEDS: MEMANTINE HCL 5 MG TABLET GT SCH (08:18)
[2018-05-26] MEDS: PANTOPRAZOLE 40 MG VIAL IV SCH (08:18)
[2018-05-26] MEDS: ENALAPRIL MALEATE (10 MG) 10 MG TABLET GT SCH (08:19)
[2018-05-26] MEDS: AMLODIPINE BESYLATE 2.5 MG TABLET GT SCH (08:20)
[2018-05-26] MEDS: ATROPINE SULFATE OPHTH SOLN 15 ML BOTTLE LEFTEYE SCH (08:23)
[2018-05-26] MEDS: TIMOLOL 0.5% SOLN OPHTH 5 ML BOTTLE EACHEYE SCH (08:23)
[2018-05-26] MEDS: PILOCARPINE 2% OPTH DROP 15 ML BOTTLE EACHEYE SCH (08:23)
[2018-05-26] MEDS: INSULIN GLARGINE, 100 UNIT/ML CARTRIDGE SQ SCH (08:58)
[2018-05-26] MEDS ORDERED: CYANOCOBALAMIN 500 MCG TABLET PO SCH (09:00)
[2018-05-26] MEDS ORDERED: ASPIRIN EC 81 MG TABLET.DR PO SCH (09:00)
[2018-05-26] MEDS ORDERED: CHOLECALCIFEROL 1,000 UNIT TABLET (VIT D3) PO SCH (09:00)
[2018-05-26] MEDS ORDERED: DONEPEZIL 5 MG TABLET GT SCH (09:00)
[2018-05-26] MEDS ORDERED: POTASSIUM CHLORIDE 20 MEQ POWDER PACKET GT SCH (09:00)
[2018-05-26] MEDS ORDERED: CARBAMAZEPINE 200 MG TABLET GT SCH (09:00)
--- NOTE | 2018-05-26 09:29 | NUR ---
RN NOTES PT.'S SCHEDULED BP MEDICATIONS WERE GIVEN, AND BLOOD PRESSURE DECREASED TO 153/89.
--- NOTE | 2018-05-26 10:12 | NUR ---
RECHECKED PT.'S BP. NEW BP ELEVATED AGAIN 181/108. WAS NOTIFIED, AND OKAY TO GIVE CATAPRES 0.1 MG.
[2018-05-26] MEDS: CLONIDINE HCL 0.1 MG TABLET GT PRN (10:35)
[2018-05-26] MEDS: CEFTRIAXONE 1 G in IV D5W 50 ML IV SCH (11:32)
[2018-05-26 12:00] VITALS: BP 138/80
--- NOTE | 2018-05-26 12:00 | NUR ---
NEW BP AFTER CATAPRES WAS 134/76. PT. IS OKAY TO BE DISCHARGED PER MD.
--- NOTE | 2018-05-26 12:40 | NUR ---
INSURANCE SPECIALIST PT. WAS DISCHARGED HOME IN STABLE CONDITION. DISCHARGE INSTRUCTIONS WERE EXPLAINED, AND PT.'S DAUGHTER VERBALIZED UNDERSTANDING. DISCHARGE PAPERS WERE SIGNED. BELONGINGS LIST WAS CHECKED, AND SIGNED. RIGHT UPPER MIDLINE REMOVED WITHOUT COMPLICATIONS. PT. LEFT BY AMBULANCE AND REPORT WAS GIVEN. PT.'S FAMILY LEFT ALONG SIDE PT.
== END 2018-05-26 13:07 | disposition home or self-care (01) | DRG 871 ==
LOC: ER 16:33 → TELE1 21:07
PROVIDERS: ADMIT Nurse Practitioner Acute Care; ATTEND Nurse Practitioner Acute Care
PROC: 05H533Z Insertion of Infusion Device into Right Subclavian Vein, Percutaneous Approach (ICD-10-PCS; principal; 2018-05-24)
PROC: B546ZZA Ultrasonography of Right Subclavian Vein, Guidance (ICD-10-PCS; 2018-05-24)
DX: A41.9 Sepsis, unspecified organism (principal); N17.0 Acute kidney failure with tubular necrosis; K85.90 Acute pancreatitis without necrosis or infection, unspecified; E44.1 Mild protein-calorie malnutrition; N39.0 Urinary tract infection, site not specified; E87.1 Hypo-osmolality and hyponatremia; J98.11 Atelectasis; D68.59 Other primary thrombophilia; M48.56XA Collapsed vertebra, not elsewhere classified, lumbar region, initial encounter for fracture; I25.10 Atherosclerotic heart disease of native coronary artery without angina pectoris; K80.20 Calculus of gallbladder without cholecystitis without obstruction; K57.30 Diverticulosis of large intestine without perforation or abscess without bleeding; K82.8 Other specified diseases of gallbladder; R13.10 Dysphagia, unspecified; G30.9 Alzheimer's disease, unspecified; F02.80 Dementia in other diseases classified elsewhere, unspecified severity, without behavioral disturbance, psychotic disturbance, mood disturbance, and anxiety; Z79.4 Long term (current) use of insulin; Z79.82 Long term (current) use of aspirin; Z79.899 Other long term (current) drug therapy; Z90.710 Acquired absence of both cervix and uterus; Z98.890 Other specified postprocedural states; E86.1 Hypovolemia; Z93.1 Gastrostomy status; Z74.01 Bed confinement status; Z74.09 Other reduced mobility; K56.41 Fecal impaction; E87.6 Hypokalemia; I10 Essential (primary) hypertension; E11.9 Type 2 diabetes mellitus without complications; E78.5 Hyperlipidemia, unspecified; B96.20 Unspecified Escherichia coli [E. coli] as the cause of diseases classified elsewhere
CPT/HCPCS: 36415; 71045-TC; 74181-TC; 76705-TC; 80048-TC; 80053-TC; 80061-TC; 80076-TC; 81000-TC; 82962-TC; 83605-TC; 83690-TC; 83735-TC; 83935-TC; 84100-TC; 84300-TC; 84443-TC; 84484-TC; 85025-TC; 85730-TC; 87040-TC; 87081-TC; 87086-TC; 87186-TC; A4216; A4606; A9563; C9113; J0360; J0696; J1815; J2185; J2270; J2405; J2543; J3475; J3480; J7030; J7040; J7050; J7060; Z7610

== ENCOUNTER 2018-06-12 11:10 | Emergency (ER) | payer MEDICARE, MEDICAID ==
[~2018-06-12] VITALS: Ht 147.3 cm; Wt 44.0 kg
[~2018-06-12 11:10] MED LIST changes: +AMLO2.5T GT; -BRIN10DR EACHEYE; -BUSP5TAB PO; +CEPH-569 PO; +MEMA10TA GT; -MEMA1TAB PO; -NITR100C6 GT; -NUT.100029 GT; +NUT.237L28 GT; +PILO15DR36 EACHEYE
--- NOTE | 2018-06-12 11:20 | NUR ---
82 yo female bb family. patient is non verbal, per family this is patient baseline due to alzheimers. per family patient has been vomiting her food. patient was gowned, placed on clinical research monitor. skin warm and dry, resp even and unlabored. awaiting orders from provider, will continue to monitor
--- NOTE | 2018-06-12 11:33 | NUR ---
20g right hand iv started, blood sample obtained and sent to lab
[2018-06-12] MEDS ORDERED: ONDANSETRON HCL/PF 4 MG/2 ML VIAL ONE ×2 (11:44→13:48)
[2018-06-12] MEDS ORDERED: ONDANSETRON HCL/PF 4 MG/2 ML VIAL IVP ONE ×2 (12:00→14:00)
[2018-06-12] MEDS ORDERED: IV NS 0.9% 1,000 ML BAG IV ONE (12:00)
[2018-06-12 12:41] LABS: BASOPHILS % (AUTO) 0.2 % (0.0-2.0); EOSINOPHILS % (AUTO) 1.8 % (0.0-6.0); HEMATOCRIT 44 % (33-45); HEMOGLOBIN 14.3 g/dL (11.5-14.8); LYMPHOCYTES # (AUTO) 1.7 /CMM (0.8-4.8); LYMPHOCYTES % (AUTO) 19.2 % (20.0-44.0); MEAN CORPUSCULAR HEMOGLOBIN 31 PG (26.0-33.0); MEAN CORPUSCULAR HGB CONC 33 g/dl (31.0-36.0); MEAN CORPUSCULAR VOLUME 95 fL (82-100); MONOCYTES # (AUTO) 0.6 /CMM (0.1-1.30); MONOCYTES % (AUTO) 6.9 % (2.0-12.0); NEUTROPHILS # (AUTO) 6.1 /CMM (1.8-8.9); NEUTROPHILS % (AUTO) 71.9 % (43.0-81.0); PLATELET COUNT (AUTO) 283 /CMM (150-450); RDW COEFFICIENT OF VARIATION 13.7 (11.5-15.0); WHITE BLOOD COUNT (AUTO) 8.6 K/uL (4.3-11.0)
[2018-06-12 12:47] LABS: APPEARANCE,URINE SL CLOUDY (CLEAR); BILIRUBIN,URINE NEGATIVE (NEGATIVE); BLOOD, URINE NEGATIVE Ery/uL (NEGATIVE); COLOR,URINE DARK YELLO (YELLOW); KETONES,URINE NEGATIVE (NEGATIVE); LEUKOCYTE ESTERASE ,URINE NEGATIVE (NEGATIVE); NITRITE, URINE NEGATIVE (NEGATIVE); PH,URINE 6.5 (5.0-8.0); PROTEIN,URINE TRACE mg/dl (NEGATIVE); UGLUCOSE NEGATIVE (NEGATIVE); UROBILINOGEN,URINE 0.2 EU/dL (0.2)
[2018-06-12 13:00] LABS: CALCIUM, SERUM 9.3 mg/dL (8.5-10.1); CARBON DIOXIDE 25 mmol/L (21-32); CHLORIDE 100 mmol/L (98-107); CREATININE 0.7 mg/dL (0.6-1.3); GLUCOSE 140 mg/dL (74-106); POTASSIUM 4.3 mmol/L (3.5-5.1); SODIUM SERUM 132 mmol/L (136-145); UREA NITROGEN, BLOOD 16 mg/dL (7-18)
[2018-06-12 13:06] LABS: ALANINE AMINOTRANSFERASE 25 U/L (12-78); ALBUMIN 3.4 g/dL (3.4-5.0); ALKALINE PHOSPHATASE 118 U/L (46-116); ASPARTATE AMINOTRANSFERASE 23 U/L (15-37); BILIRUBIN,DIRECT 0.1 mg/dL (0.0-0.2); BILIRUBIN,TOTAL 0.5 mg/dL (0.2-1.0); LIPASE 439 U/L (73-393); TOTAL PROTEIN, SERUM 8.4 g/dL (6.4-8.2)
[2018-06-12 13:22] LABS: BACTERIA,URINE Few /HPF (None Seen); RBC,URINE 0-2 /HPF (0-2); WBC,URINE 0-2 /HPF (0-3)
--- NOTE | 2018-06-12 13:46 | NUR ---
VITAL SIGNS UPDATED.
[2018-06-12 13:55] VITALS: BP 118/71
--- NOTE | 2018-06-12 13:56 | NUR ---
Patient discharged to home in stable condition. Written and verbal after care instructions given. Patient verbalizes understanding of instruction.IV removed. Catheter intact and site benign. Pressure and 4x4 applied to site. No bleeding noted. PT ambulatory with a steady gait VITAL SIGNS WITHIN NORMAL LIMITS.
== END 2018-06-12 14:30 | disposition home or self-care (01) ==
LOC: ER 11:11
DX: R11.2 Nausea with vomiting, unspecified (principal); G30.9 Alzheimer's disease, unspecified; F02.80 Dementia in other diseases classified elsewhere, unspecified severity, without behavioral disturbance, psychotic disturbance, mood disturbance, and anxiety; I10 Essential (primary) hypertension; E11.9 Type 2 diabetes mellitus without complications; Z90.710 Acquired absence of both cervix and uterus; Z79.4 Long term (current) use of insulin; Z79.82 Long term (current) use of aspirin
CPT/HCPCS: 36415; 74176; 80048; 80076; 81001; 83690; 85025; 96361; 96374; 96376; 99285; A4606; J2405 ×2; J7030; 81000-TC; Z7610

== ENCOUNTER 2018-10-20 15:41 | Inpatient (IN) | payer MEDICARE, OTHER ==
[~2018-10-20] VITALS: Ht 152.4 cm; Wt 47.2 kg
[~2018-10-20 15:41] MED LIST changes: -AMLO2.5T GT; +AMLO2.5T3 GT
[2018-10-20] MEDS ORDERED: IV NS 0.9% 500 ML BAG IV ONE (16:30)
[2018-10-20 16:48] LABS: BASOPHILS # (AUTO) 0.1 /CMM (0.0-0.2); BASOPHILS % (AUTO) 0.9 % (0.0-2.0); EOSINOPHILS % (AUTO) 6.6 % (0.0-6.0); HEMATOCRIT 38 % (33-45); HEMOGLOBIN 12.9 g/dL (11.5-14.8); LYMPHOCYTES # (AUTO) 1.2 /CMM (0.8-4.8); LYMPHOCYTES % (AUTO) 19.7 % (20.0-44.0); MEAN CORPUSCULAR HGB CONC 35 g/dl (31.0-36.0); MEAN CORPUSCULAR VOLUME 95 fL (82-100); MONOCYTES # (AUTO) 0.7 /CMM (0.1-1.30); MONOCYTES % (AUTO) 11.5 % (2.0-12.0); NEUTROPHILS # (AUTO) 3.8 /CMM (1.8-8.9); NEUTROPHILS % (AUTO) 61.3 % (43.0-81.0); PLATELET COUNT (AUTO) 244 /CMM (150-450); RED BLOOD CELL COUNT(AUTO) 3.93 MIL/uL (4.0-5.2); WHITE BLOOD COUNT (AUTO) 6.2 K/uL (4.3-11.0)
[2018-10-20 17:06] LABS: CALCIUM, SERUM 8.6 mg/dL (8.5-10.1); CARBON DIOXIDE 26 mmol/L (21-32); CHLORIDE 97 mmol/L (98-107); CREATININE 0.5 mg/dL (0.6-1.3); GLUCOSE 84 mg/dL (74-106); POTASSIUM 4.3 mmol/L (3.5-5.1); SODIUM SERUM 130 mmol/L (136-145); UREA NITROGEN, BLOOD 14 mg/dL (7-18)
[2018-10-20 17:16] LABS: ALANINE AMINOTRANSFERASE 21 U/L (12-78); ALBUMIN 3.3 g/dL (3.4-5.0); ALKALINE PHOSPHATASE 110 U/L (46-116); ASPARTATE AMINOTRANSFERASE 14 U/L (15-37); B-TYPE NATRIURETIC PEPTIDE 102 PG/ML (0-125); BILIRUBIN,DIRECT 0.1 mg/dL (0.0-0.2); BILIRUBIN,TOTAL 0.2 mg/dL (0.2-1.0); TOTAL PROTEIN, SERUM 7.7 g/dL (6.4-8.2)
[2018-10-20] MEDS ORDERED: LINA72CA PO (17:56)
[2018-10-20 18:51] LABS: APPEARANCE,URINE Cloudy (CLEAR); BILIRUBIN,URINE Negative (NEGATIVE); BLOOD, URINE Trace-intact Ery/uL (NEGATIVE); COLOR,URINE Light yellow (YELLOW); KETONES,URINE Negative (NEGATIVE); LEUKOCYTE ESTERASE ,URINE Small (NEGATIVE); NITRITE, URINE Negative (NEGATIVE); PROTEIN,URINE Negative (NEGATIVE); UGLUCOSE Negative (NEGATIVE); UROBILINOGEN,URINE 0.2 EU/dL (0.2)
--- NOTE | 2018-10-20 18:55 | NUR ---
PT BROUGHT BY WHEEL CHAIR WITH FAMILY NON VERBAL WITH C/C OF CONGESTION PIV PLACED FLUIDS GIVEN ANAYA PLACED URINE SAMPLE SENT TO LAB. PT HAD 325 URINE OUTPUT AFTER ANAYA PLACEMENT. VITAL SIGNS UPDATED
[2018-10-20 19:03] LABS: BACTERIA,URINE 1+ /HPF (None Seen); SQUAMOUS EPITHELIAL CELL,UR Few /HPF (None Seen)
--- NOTE | 2018-10-20 20:16 | NUR ---
REPORT GIVEN TO VADIM GARCIA.
--- NOTE | 2018-10-20 20:30 | NUR ---
MS PUBLIC HEALTH DENTIST NOTES PATIENT BROUGHT INTO THE UNIT VIA GURNEY, ACCOMPANIED BY EMT AND WITH FAMILY AT BEDSIDE. PT IS NON VERBAL, EYES CLOSED, NO FACIAL GRIMACING NOTED, IN NO ACUTE DISTRESS, NO SOB, BREATHING EVEN AND UNLABORED. ORIENTED PT AND FAMILY TO UNIT, ADMISSION PROCESS, ROOM, VISITING HOURS, CALL LIGHT AND USE OF CALL LIGHT. PT UNABLE TO COMPREHEND. ALL PATIENT'S NEEDS ATTENDED TO, SKIN IS INTACT. KEPT PT SAFE AND DRY, CLEAN AND COMFORTABLE. PLACED CALL LIGHT WITHIN EASY REACH. WILL CONTINUE TO MONITOR PT.
[2018-10-20 20:55] VITALS: BP 151/88
[2018-10-20] MEDS ORDERED: DEXTROSE 50%-WATER 50 ML DISP.SYRIN IV PRN (22:00)
[2018-10-20] MEDS ORDERED: ONDANSETRON HCL/PF 4 MG/2 ML VIAL IVP PRN (22:00)
[2018-10-20] MEDS ORDERED: Z GUARD REMEDY 2 OZ OINT TP PRN (22:00)
[2018-10-20] MEDS: AZITHROMYCIN 500 MG in IV D5W 250 ML IV SCH (23:00)
[2018-10-20] MEDS: IV NS 0.9% 1,000 ML IV PRN (23:13)
[2018-10-20] MEDS ORDERED: CEFTRIAXONE 1 G VIAL ONE (23:19)
[2018-10-20] MEDS: CEFTRIAXONE 1 G in IV D5W 50 ML IV SCH (23:22)
[2018-10-20] MEDS: ENOXAPARIN SODIUM 40 MG/0.4 ML DISP.SYRIN SQ SCH (23:24)
[2018-10-20] MEDS: BLOOD SUGAR DIAGNOSTIC 1 EACH STRIP IN SCH (23:24)
[2018-10-20] MEDS ORDERED: GLUCERNA 1.2 1,000 ML BOTTLE GT SCH (23:35)
[2018-10-21] MEDS ORDERED: GLUCERNA 1.2 1,000 ML BOTTLE NG SCH
[2018-10-21] MEDS ORDERED: AZITHROMYCIN 500 MG VIAL ONE (00:58)
[2018-10-21 06:20] LABS: BASOPHILS # (AUTO) 0.1 /CMM (0.0-0.2); BASOPHILS % (AUTO) 0.8 % (0.0-2.0); EOSINOPHILS % (AUTO) 2.6 % (0.0-6.0); HEMATOCRIT 41 % (33-45); HEMOGLOBIN 14.1 g/dL (11.5-14.8); LYMPHOCYTES # (AUTO) 0.6 /CMM (0.8-4.8); LYMPHOCYTES % (AUTO) 8.3 % (20.0-44.0); MEAN CORPUSCULAR HGB CONC 34 g/dl (31.0-36.0); MEAN CORPUSCULAR VOLUME 95 fL (82-100); MONOCYTES # (AUTO) 0.6 /CMM (0.1-1.30); MONOCYTES % (AUTO) 9.1 % (2.0-12.0); NEUTROPHILS # (AUTO) 5.3 /CMM (1.8-8.9); NEUTROPHILS % (AUTO) 79.2 % (43.0-81.0); PLATELET COUNT (AUTO) 256 /CMM (150-450); RED BLOOD CELL COUNT(AUTO) 4.35 MIL/uL (4.0-5.2); WHITE BLOOD COUNT (AUTO) 6.7 K/uL (4.3-11.0)
[2018-10-21] MEDS: BLOOD SUGAR DIAGNOSTIC 1 EACH STRIP IN SCH ×3 (06:39→17:32)
[2018-10-21 06:48] LABS: CARBON DIOXIDE 25 mmol/L (21-32); CHLORIDE 97 mmol/L (98-107); CREATININE 0.8 mg/dL (0.6-1.3); GLUCOSE 123 mg/dL (74-106); MAGNESIUM 2.2 mg/dL (1.8-2.4); PHOSPHORUS 1.9 mg/dL (2.5-4.9); POTASSIUM 4.3 mmol/L (3.5-5.1); SODIUM SERUM 131 mmol/L (136-145); UREA NITROGEN, BLOOD 11 mg/dL (7-18)
[2018-10-21 07:01] LABS: CHOLESTEROL 141 mg/dL (<200); HDL CHOLESTEROL 38 mg/dL (40-60); LDL 86 mg/dL (0-99); TRIGLYCERIDES 203 mg/dL (30-150)
--- NOTE | 2018-10-21 07:38 | NUR ---
RN CLOSING NOTES PATIENT IN BED, CONTINUES TO RECEIVE GTUBE FEEDING ORDERED, TOLERATING WELL. IVF INFUSING WELL ORDERED VIA G#22 IVP. PT NOTED WITH NO S/S OF DISTRESS, NO FACIAL GRIMACING. ALL PATIENT'S NEEDS ATTENDED TO. CALL LIGHT WITHIN EASY REACH, PLACED BED IN LOW POSITION AND LOCKED IN PLACE, ASPIRATION PRECAUTIONS APPLIED. WILL ENDORSE TO AM SHIFT NURSE FOR CONTINUITY OF CARE.
--- NOTE | 2018-10-21 07:46 | NUR ---
MS RN OPENING NOTE RECEIVED PATIENT IN BED. SLEEPING, RESPONDS TO PHYSICAL STIMULI WITH EYE-OPENING ONLY. NON-VERBAL. ON ROOM AIR, TOLERATING WELL . IN NO APPARENT DISTRESS OR DISCOMFORT AT THIS TIME. RESPIRATIONS EVEN AND UNLABORED. PATIENT IS UNABLE TO COMMUNICATE NEEDS. ANAYA CATHETER IN PLACE DRAINING CLEAR YELLOW URINE. G-TUBE IN PLACE WITH FEEDING RUNNING AT 40CC/HR. CHECKED PLACEMENT, TOLERATES FEEDING WELL, WITH RESIDUAL OF 5CC. LEFT HAND 22G. IVS WITH FLUIDS RUNNING AT 75ML/HR, PATENT AND INTACT. ALL NEEDS ATTENDED, KEPT CLEAN AND COMFORTABLE. SAFETY MEASURES IN PLACE, BED IN LOW LOCKED POSITION SIDE RAILS UP X2, CALL LIGHT WITHIN EASY REACH. WILL CONTINUE TO MONITOR.
[2018-10-21 08:00] VITALS: BP 123/73
[2018-10-21] MEDS: DONEPEZIL 5 MG TABLET GT SCH (08:49)
[2018-10-21] MEDS: ASPIRIN EC 81 MG TABLET.DR PO SCH (08:50)
[2018-10-21] MEDS: CHOLECALCIFEROL 1,000 UNIT TABLET (VIT D3) PO SCH (08:51)
[2018-10-21] MEDS: CARBAMAZEPINE 200 MG TABLET GT SCH (08:51)
[2018-10-21] MEDS: AMLODIPINE BESYLATE 2.5 MG TABLET GT SCH ×2 (08:51→16:55)
[2018-10-21] MEDS: GLYCOPYRROLATE 1 MG TABLET GT SCH ×2 (08:52→16:54)
[2018-10-21] MEDS: MEMANTINE HCL 5 MG TABLET GT SCH ×2 (08:52→16:54)
[2018-10-21] MEDS: CYANOCOBALAMIN 500 MCG TABLET PO SCH (08:52)
[2018-10-21] MEDS: POTASSIUM CHLORIDE 20 MEQ POWDER PACKET GT SCH (08:53)
[2018-10-21] MEDS: TIMOLOL 0.5% SOLN OPHTH 5 ML BOTTLE EACHEYE SCH ×2 (08:53→16:55)
[2018-10-21] MEDS: PILOCARPINE 2% OPTH DROP 15 ML BOTTLE EACHEYE SCH ×2 (08:53→16:55)
[2018-10-21] MEDS: ATROPINE SULFATE OPHTH SOLN 15 ML BOTTLE LEFTEYE SCH (08:53)
[2018-10-21] MEDS: ENALAPRIL MALEATE (10 MG) 10 MG TABLET GT SCH ×2 (08:53→16:54)
[2018-10-21] MEDS ORDERED: GLUCERNA 1.2 1,000 ML BOTTLE GT SCH ×2 (09:00)
[2018-10-21] MEDS: INSULIN GLARGINE, 100 UNIT/ML CARTRIDGE SQ SCH (09:03)
[2018-10-21 09:16] LABS: ABG BASE EXCESS 2.9 mmol/L; ABG OXYGEN SATURATION 93.6 % (92.0-98.5); ABG PCO2 34.5 mmHg (35.0-45.0); ABG PH 7.493 (7.350-7.450); ABG PO2 62.4 mmHg (75.0-100.0); COHb 0.5 % (0.5-1.5); MetHb 0.5 % (0.0-1.5); O2Hb 92.7 % (94.0-97.0); SITE, ABG Right Radial; VENT MODE, BG ROOM AIR
[2018-10-21] MEDS ORDERED: NEUTRA PHOS 1 POWD.PACKET NG ONE (09:30)
[2018-10-21 09:39] VITALS: BP 123/73
--- NOTE | 2018-10-21 14:42 | NUR ---
RT NOTE: PATIENT NT SUCTIONED PER MD REQUEST. OBTAINED LARGE AMOUNT OF THICK CLEAR/BLOOD TINGED SECRETIONS. PATIENT CONTINUES TO HAVE COUGHING SPASM. SP02 98% AND RESPIRATIONS ARE EVEN AND UNLABORED. NURSE AWARE.
[2018-10-21 16:00] VITALS: BP 127/66
--- NOTE | 2018-10-21 17:00 | NUR ---
PATIENT HAS FEVER 100.7. ICE PACKS APPLIED, ROOM TEMPERATURE ADJUSTED, ORDER OBTAINED FROM DR. IMTIAZ MARTINO FOR TYLENOL 650MG PO Q6HRS NEEDED. ORDER READ BACK AND VERIFIED. MEDICATION WAS ADMINISTERED VIA G-TUBE. WILL CONTINUE TO MONITOR AT THIS TIME.
[2018-10-21] MEDS: IV NS 0.9% 1,000 ML IV PRN (17:04)
[2018-10-21] MEDS: ACETAMINOPHEN 325 MG TABLET PO PRN (17:25)
--- NOTE | 2018-10-21 18:29 | NUR ---
MS RN CLOSING NOTE PATIENT IN BED. SLEEPING, RESPONDS TO PHYSICAL STIMULI WITH EYE-OPENING ONLY. NON-VERBAL. ON ROOM AIR, TOLERATING WELL . IN NO APPARENT DISTRESS OR DISCOMFORT AT THIS TIME. RESPIRATIONS EVEN AND UNLABORED. PATIENT IS UNABLE TO COMMUNICATE NEEDS. ANAYA CATHETER IN PLACE DRAINING YELLOW URINE WITH SEDIMENTS. G-TUBE IN PLACE WITH FEEDING RUNNING AT 40CC/HR, CHECKED PLACEMENT, TOLERATES FEEDING WELL, WITH RESIDUAL OF 10CC. LEFT HAND 22G IVC WITH FLUIDS RUNNING AT 75ML/HR, PATENT AND INTACT. ALL NEEDS ATTENDED, KEPT CLEAN AND COMFORTABLE, ORDERS RENDERED, TURNED AND REPOSITIONED PER PROTOCOL, SAFETY MEASURES IN PLACE, BED IN LOW LOCKED POSITION SIDE RAILS UP X2, CALL LIGHT WITHIN EASY REACH. WILL ENDORSE TO PM NURSE FOR BROWN.
--- NOTE | 2018-10-21 19:10 | NUR ---
MS RN OPENING NOTES Received patient awake on Paz's position on bed. With patent peripheral IV ,lline L hand G#22 with NS @ 75 ml/hr as ordered. With FC with clear yellow urine output. With G-tube on hold, residual amount 50cc. On RA, no SOB/respiratory distress noted. With occasional productive cough, patient unable to expectorate. Family at bedside. Inquiries answered with satisfaction. Will continue to monitor accordingly.
[2018-10-21 20:00] VITALS: BP 120/59
--- NOTE | 2018-10-21 20:00 | NUR ---
MS RN NOTES Recheck for residual, 0 cc noted. Abdomen soft and nondistended. Resume GTF @ 30 cc/hr. Will continue to monitor accordingly.
[2018-10-21] MEDS: CEFTRIAXONE 1 G in IV D5W 50 ML IV SCH (22:12)
[2018-10-21] MEDS: ENOXAPARIN SODIUM 40 MG/0.4 ML DISP.SYRIN SQ SCH (22:14)
[2018-10-21] MEDS: AZITHROMYCIN 500 MG in IV D5W 250 ML IV SCH (22:46)
--- NOTE | 2018-10-22 | NUR ---
MS RN NOTES BS - 121. Recheck for residual - 0cc. Abdomen nondistended. No vomiting noted. Increased feeding rate to 40cc/hr. Will continue to monitor accordingly.
[2018-10-22] MEDS: BLOOD SUGAR DIAGNOSTIC 1 EACH STRIP IN SCH ×4 (00:19→17:01)
--- NOTE | 2018-10-22 06:43 | NUR ---
MS RN CLOSING NOTES Patient asleep on High Paz's position on bed with patent GTF Glucerna 1.2 @ 40cc/hr as ordered. Abdomen nondistended, no residual noted. BS 118. With occasional productive coughing with difficulty expectorating phlegm. Suction PRN. All needs attended. Kept clean dry and comfortable. Afebrile the whole shift. Endorsed to the next shift.
[2018-10-22 07:28] LABS: CALCIUM, SERUM 8.1 mg/dL (8.5-10.1); CARBON DIOXIDE 27 mmol/L (21-32); CHLORIDE 104 mmol/L (98-107); CREATININE 0.6 mg/dL (0.6-1.3); GLUCOSE 121 mg/dL (74-106); PHOSPHORUS 2.3 mg/dL (2.5-4.9); POTASSIUM 3.8 mmol/L (3.5-5.1); SODIUM SERUM 137 mmol/L (136-145); UREA NITROGEN, BLOOD 10 mg/dL (7-18)
--- NOTE | 2018-10-22 07:50 | NUR ---
MS RN OPENING NOTE RECEIVED PATIENT IN BED. SLEEPING, RESPONDS TO PHYSICAL STIMULI WITH EYE-OPENING ONLY. NON-VERBAL. ON ROOM AIR, TOLERATING WELL . IN NO APPARENT DISTRESS OR DISCOMFORT AT THIS TIME. RESPIRATIONS EVEN AND UNLABORED. PATIENT IS UNABLE TO COMMUNICATE NEEDS. ANAYA CATHETER IN PLACE DRAINING CLEAR YELLOW URINE. G-TUBE IN PLACE WITH FEEDING RUNNING AT 40CC/HR. CHECKED PLACEMENT, TOLERATES FEEDING WELL, NO ABDOMINAL DISTENTION NOTED. WITH RESIDUAL LESS THAN 10CC. LEFT HAND 22G. IVC WITH FLUIDS RUNNING AT 75ML/HR, PATENT AND INTACT. ALL NEEDS ATTENDED, KEPT CLEAN AND COMFORTABLE. SAFETY MEASURES IN PLACE, BED IN LOW LOCKED POSITION SIDE RAILS UP X2, CALL LIGHT WITHIN EASY REACH. WILL CONTINUE TO MONITOR.
[2018-10-22 08:00] VITALS: BP 161/83
[2018-10-22] MEDS: CARBAMAZEPINE 200 MG TABLET GT SCH (08:57)
[2018-10-22] MEDS: AMLODIPINE BESYLATE 2.5 MG TABLET GT SCH ×2 (08:57→16:36)
[2018-10-22] MEDS: MEMANTINE HCL 5 MG TABLET GT SCH ×2 (08:57→16:37)
[2018-10-22] MEDS: ASPIRIN EC 81 MG TABLET.DR PO SCH (08:57)
[2018-10-22] MEDS: CHOLECALCIFEROL 1,000 UNIT TABLET (VIT D3) PO SCH (08:57)
[2018-10-22] MEDS: ENALAPRIL MALEATE (10 MG) 10 MG TABLET GT SCH ×2 (08:57→16:37)
[2018-10-22] MEDS: GLYCOPYRROLATE 1 MG TABLET GT SCH ×2 (08:57→16:37)
[2018-10-22] MEDS: POTASSIUM CHLORIDE 20 MEQ POWDER PACKET GT SCH (08:57)
[2018-10-22] MEDS: DONEPEZIL 5 MG TABLET GT SCH (08:58)
[2018-10-22] MEDS: ATROPINE SULFATE OPHTH SOLN 15 ML BOTTLE LEFTEYE SCH (08:58)
[2018-10-22] MEDS: CYANOCOBALAMIN 500 MCG TABLET PO SCH (08:58)
[2018-10-22] MEDS ORDERED: GLUCERNA 1.2 1,000 ML BOTTLE NG PRN (09:00)
[2018-10-22] MEDS: PILOCARPINE 2% OPTH DROP 15 ML BOTTLE EACHEYE SCH ×2 (09:01→16:57)
[2018-10-22] MEDS: TIMOLOL 0.5% SOLN OPHTH 5 ML BOTTLE EACHEYE SCH ×2 (09:01→16:57)
[2018-10-22] MEDS: INSULIN GLARGINE, 100 UNIT/ML CARTRIDGE SQ SCH (09:02)
--- NOTE | 2018-10-22 10:45 | NUR ---
PATIENT HAS PRODUCTIVE COUGH WITH DIFFICULTY EXPECTORATING PHLEGM. WHEEZING AUSCULTATED IN ALL LUNG GRIFFIN BILATERALLY. REPORTED TO DR. IMTIAZ BARTON. RECEIVED ORDER TO INITIATE BREATHING TREATMENTS ALBUTEROL 2.5MG NEB. Q6HRS PRN, AND ATROVENT 0.5MG NEB Q6HRS PRN. SUCTION PATIENT EVERY 3-4 HOURS NEEDED. NOTED AND CARRIED OUT. WILL FOLLOW UP AT THIS TIME.
[2018-10-22] MEDS ORDERED: IPRATROPIUM NEB FS 0.5 MG/2.5 ML AMPUL.NEB NEB PRN (11:00)
--- NOTE | 2018-10-22 11:15 | NUR ---
PER DR. IMTIAZ MARTINO, ADD TO BREATHING TREATMENTS MUCOMYST 200MG INHALATION EVERY 6HRS PRN ADMINISTERED BY RT. NOTED AND CARRIED OUT. WILL CONTINUE TO MONITOR.
[2018-10-22] MEDS ORDERED: ACETYLCYSTEINE 10% SOLN 400 MG/4 ML VIAL NEB SCH (11:30)
[2018-10-22] MEDS ORDERED: ACETYLCYSTEINE 10% SOLN 400 MG/4 ML VIAL NEB PRN (11:30)
[2018-10-22] MEDS: ALBUTEROL FS 2.5 MG/3 ML VIAL.NEB NEB PRN (12:02)
[2018-10-22] MEDS ORDERED: NEUTRA PHOS 1 POWD.PACKET NG ONE ×2 (13:30→15:30)
[2018-10-22] MEDS: ACETAMINOPHEN 325 MG TABLET PO PRN (15:14)
[2018-10-22 16:00] VITALS: BP 146/89
--- NOTE | 2018-10-22 17:11 | NUR ---
PATIENT HAS FEVER OF 100.2. TYLENOL 650MG WAS RECENTLY ADMINISTERED. ICE PACKS APPLIED, BLANKETS REMOVED, ROOM TEMPERATURE DECREASED TO COOLER. NOTIFIED. WILL CONTINUE TO MONITOR AT THIS TIME.
--- NOTE | 2018-10-22 18:18 | NUR ---
PATIENT'S FEVER DECREASED TO 98.0. WILL CONTINUE TO MONITOR.
--- NOTE | 2018-10-22 18:26 | NUR ---
MS RN CLOSING NOTE PATIENT IN BED. SLEEPING, RESPONDS TO PHYSICAL STIMULI WITH EYE-OPENING ONLY. NON-VERBAL. ON ROOM AIR, TOLERATING WELL . IN NO APPARENT DISTRESS OR DISCOMFORT AT THIS TIME. RESPIRATIONS EVEN AND UNLABORED. AFEBRILE AT THIS TIME. PATIENT IS UNABLE TO COMMUNICATE NEEDS. ANAYA CATHETER IN PLACE DRAINING CLEAR YELLOW URINE. G-TUBE IN PLACE WITH FEEDING RUNNING AT 40CC/HR. CHECKED PLACEMENT, TOLERATES FEEDING WELL, NO ABDOMINAL DISTENTION NOTED, WITH RESIDUAL LESS THAN 10CC. LEFT HAND 22G IVC WITH FLUIDS RUNNING AT 75ML/HR, PATENT AND INTACT. ALL NEEDS ATTENDED, KEPT CLEAN AND COMFORTABLE. TURNED AND REPOSITIONED PER PROTOCOL. SAFETY MEASURES IN PLACE, BED IN LOW LOCKED POSITION SIDE RAILS UP X2, CALL LIGHT WITHIN EASY REACH. WILL ENDORSE TO PM NURSE FOR BROWN.
--- NOTE | 2018-10-22 19:30 | NUR ---
MS RN OPENING NOTE RECEIVED PATIENT IN BED, RESPONDS TO PHYSICAL STIMULI WITH EYE-OPENING ONLY. NON-VERBAL. ON ROOM AIR, TOLERATING WELL. IN NO APPARENT DISTRESS OR DISCOMFORT AT THIS TIME. AT BED SIDE. RESPIRATIONS EVEN AND UNLABORED. PATIENT IS UNABLE TO COMMUNICATE NEEDS. ANAYA CATHETER IN PLACE DRAINING CLEAR YELLOW URINE. G-TUBE IN PLACE WITH FEEDING RUNNING AT 40CC/HR. CHECKED PLACEMENT, TOLERATES FEEDING WELL, NO ABDOMINAL DISTENTION NOTED. WITH RESIDUAL 2ML ONLY. IV ACCESS TO LEFT HAND 22G. IVC WITH FLUIDS RUNNING AT 75ML/HR, PATENT AND INTACT. BED IN LOW LOCKED POSITION. CALL LIGHT WITHIN REACH. WILL MONITOR CLOSELY.
[2018-10-22 20:00] VITALS: BP 136/71
[2018-10-22] MEDS: CEFTRIAXONE 1 G in IV D5W 50 ML IV SCH (21:40)
[2018-10-22] MEDS: AZITHROMYCIN 500 MG in IV D5W 250 ML IV SCH (22:16)
[2018-10-22] MEDS: IV NS 0.9% 1,000 ML IV PRN (22:16)
[2018-10-22] MEDS: ENOXAPARIN SODIUM 40 MG/0.4 ML DISP.SYRIN SQ SCH (22:20)
[2018-10-23] MEDS: BLOOD SUGAR DIAGNOSTIC 1 EACH STRIP IN SCH ×3 (00:07→12:48)
[2018-10-23] MEDS: INSULIN REGULAR, HUMAN 100 UNIT/ML 3 ML VIAL SQ PRN ×2 (00:10→06:33)
--- NOTE | 2018-10-23 00:10 | NUR ---
MS RN NOTE BS IS 142 MG/DL, 2 UNIT OF INSULIN GIVEN PER PROTOCOL. PATIENT IS ON GTF, TOLERATING WELL.
--- NOTE | 2018-10-23 06:55 | NUR ---
MS RN CLOSING NOTE PATIENT RESTING IN BED, RESPONDS TO PHYSICAL STIMULI WITH EYE-OPENING ONLY. NON-VERBAL. ON ROOM AIR, TOLERATING WELL. IN NO APPARENT DISTRESS OR DISCOMFORT. RESPIRATIONS EVEN AND UNLABORED. ANAYA CATHETER IN PLACE DRAINING CLEAR YELLOW URINE. G-TUBE IN PLACE WITH FEEDING RUNNING AT 40CC/HR. CHECKED PLACEMENT, TOLERATES FEEDING WELL, WITH RESIDUAL 5ML ONLY. IV ACCESS TO LEFT HAND 22G, WITH FLUIDS RUNNING AT 75ML/HR, PATENT AND INTACT. BED IN LOW LOCKED POSITION. CALL LIGHT WITHIN REACH. WILL ENDORSE TO AM RN.
--- NOTE | 2018-10-23 07:30 | NUR ---
RECEIVED PT. OBTUNDED,EYES OPEN FROM TIME TO TIME. IV INFUSING WELL TUBE FEEDING.VS STABLE.REPOSITIONED FREQ.
[2018-10-23 08:00] VITALS: BP 152/84
--- NOTE | 2018-10-23 08:30 | NUR ---
SPOUSE IN TO VISIT.QUESTIONING POSSIBLE DC TODAY.
--- NOTE | 2018-10-23 09:30 | NUR ---
DR. KITCHEN IN HAVING DISCUSSION WITH FAMILY REGARDING SNF VS SENDING PT. HOME.FAMILY VERY MUCH WANT DC TO HOME. LABORATORY EQUIPMENT CLEANERKenny BALLARD WELL UP TO TALK WITH FAMILY.
[2018-10-23] MEDS: INSULIN GLARGINE, 100 UNIT/ML CARTRIDGE SQ SCH (09:36)
[2018-10-23] MEDS: ATROPINE SULFATE OPHTH SOLN 15 ML BOTTLE LEFTEYE SCH (09:54)
[2018-10-23] MEDS: TIMOLOL 0.5% SOLN OPHTH 5 ML BOTTLE EACHEYE SCH (09:54)
[2018-10-23] MEDS: PILOCARPINE 2% OPTH DROP 15 ML BOTTLE EACHEYE SCH (09:55)
[2018-10-23] MEDS: DONEPEZIL 5 MG TABLET GT SCH (09:55)
[2018-10-23] MEDS: ENALAPRIL MALEATE (10 MG) 10 MG TABLET GT SCH (09:56)
[2018-10-23] MEDS: ASPIRIN EC 81 MG TABLET.DR PO SCH (09:56)
[2018-10-23] MEDS: AMLODIPINE BESYLATE 2.5 MG TABLET GT SCH (09:56)
[2018-10-23] MEDS: CHOLECALCIFEROL 1,000 UNIT TABLET (VIT D3) PO SCH (09:58)
[2018-10-23] MEDS: GLYCOPYRROLATE 1 MG TABLET GT SCH (09:58)
[2018-10-23] MEDS: CARBAMAZEPINE 200 MG TABLET GT SCH (09:58)
[2018-10-23] MEDS: POTASSIUM CHLORIDE 20 MEQ POWDER PACKET GT SCH (09:58)
[2018-10-23] MEDS: MEMANTINE HCL 5 MG TABLET GT SCH (09:58)
[2018-10-23] MEDS: CYANOCOBALAMIN 500 MCG TABLET PO SCH (09:58)
--- NOTE | 2018-10-23 11:30 | NUR ---
AFTER LENGTHY AMT. OF TIME SPENT WITH FAMILY-DECISION TO SEND PT. HOME. PT. ALREADY HAS HOME HEALTH.PT. TO GO HOME ON [place].
[2018-10-23] MEDS ORDERED: LEVO500T75 PO (11:56)
[2018-10-23] MEDS: ALBUTEROL FS 2.5 MG/3 ML VIAL.NEB NEB PRN (13:15)
--- NOTE | 2018-10-23 13:30 | NUR ---
PAPERWORK BEING MADE READY.
--- NOTE | 2018-10-23 14:05 | NUR ---
ANAYA CATH REMOVED.
[2018-10-23 16:00] VITALS: BP 143/86
[2018-10-23] MEDS: IV NS 0.9% 1,000 ML IV PRN (16:30)
--- NOTE | 2018-10-23 17:55 | NUR ---
DC INFO GIVEN TO FAMILY ALL PAPERS SIGNED WELL BELONGING SHEET. DTR. INSTRUCTED TO CALL HOME HEALTH IF PT. HAS PROBLEMS VOIDING.HEP LOCK REMOVED AND G-TUBE FEEDING DISCONNECTED.REPORT TO AMB. 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
[2018-10-23] MEDS ORDERED: AZITHROMYCIN 250 MG TABLET PO SCH (21:00)
== END 2018-10-23 17:50 | disposition home health service (06) | DRG 202 ==
LOC: ER 15:45 → MED 19:45
PROVIDERS: ADMIT Nurse Practitioner Acute Care
DX: J20.9 Acute bronchitis, unspecified (principal); R53.2 Functional quadriplegia; G93.49 Other encephalopathy; N39.0 Urinary tract infection, site not specified; G30.9 Alzheimer's disease, unspecified; F02.80 Dementia in other diseases classified elsewhere, unspecified severity, without behavioral disturbance, psychotic disturbance, mood disturbance, and anxiety; I25.10 Atherosclerotic heart disease of native coronary artery without angina pectoris; E11.9 Type 2 diabetes mellitus without complications; E78.5 Hyperlipidemia, unspecified; I10 Essential (primary) hypertension; Z93.1 Gastrostomy status; Z86.73 Personal history of transient ischemic attack (TIA), and cerebral infarction without residual deficits; B96.20 Unspecified Escherichia coli [E. coli] as the cause of diseases classified elsewhere; Z79.4 Long term (current) use of insulin
CPT/HCPCS: 36415; 36600; 71045-TC; 80048-TC; 80061-TC; 80076-TC; 81000-TC; 82962-TC; 83605-TC; 83735-TC; 83880; 84100-TC; 84484-TC; 85025-TC; 85730-TC; 87040-TC; 87081-TC; 87086-TC; 87186-TC; A4217; A4606; G0378; J0456; J0696; J1650; J1815; J7030; J7040; J7060; Z7610

== ENCOUNTER 2018-12-17 20:59 | Emergency (ER) | payer MEDICARE, OTHER ==
[~2018-12-17] VITALS: Ht 147.3 cm; Wt 44.5 kg
[~2018-12-17 20:59] MED LIST changes: -AMLO2.5T3 GT; +AMLO2.5T4 GT; -CEPH-569 PO; +LEVO500T75 PO; +LINA72CA PO
--- NOTE | 2018-12-17 21:30 | NUR ---
PT BIB family, complaining of vomitting x3 times today. Pt is AXO1. Respirations even and unlabored. Pt put on the monitor and pending eval from ER MD. Pt family at bedside.
[2018-12-17] MEDS ORDERED: ONDANSETRON HCL/PF 4 MG/2 ML VIAL IVP ONE (22:00)
[2018-12-17] MEDS ORDERED: ONDANSETRON HCL/PF 4 MG/2 ML VIAL ONE (22:05)
[2018-12-17 22:18] LABS: BASOPHILS # (AUTO) 0.1 /CMM (0.0-0.2); BASOPHILS % (AUTO) 0.6 % (0.0-2.0); HEMATOCRIT 44 % (33-45); HEMOGLOBIN 15.2 g/dL (11.5-14.8); LYMPHOCYTES # (AUTO) 0.9 /CMM (0.8-4.8); LYMPHOCYTES % (AUTO) 9.7 % (20.0-44.0); MEAN CORPUSCULAR HGB CONC 35 g/dl (31.0-36.0); MEAN CORPUSCULAR VOLUME 96 fL (82-100); MONOCYTES # (AUTO) 0.3 /CMM (0.1-1.30); MONOCYTES % (AUTO) 3.6 % (2.0-12.0); NEUTROPHILS # (AUTO) 7.8 /CMM (1.8-8.9); NEUTROPHILS % (AUTO) 86.1 % (43.0-81.0); PLATELET COUNT (AUTO) 227 /CMM (150-450); RED BLOOD CELL COUNT(AUTO) 4.59 MIL/uL (4.0-5.2); WHITE BLOOD COUNT (AUTO) 9.1 K/uL (4.3-11.0)
[2018-12-17] MEDS ORDERED: IV NS 0.9% 500 ML BAG IV ONE (22:30)
[2018-12-17 22:31] LABS: CALCIUM, SERUM 9.6 mg/dL (8.5-10.1); CARBON DIOXIDE 29 mmol/L (21-32); CHLORIDE 96 mmol/L (98-107); CREATININE 0.8 mg/dL (0.6-1.3); GLUCOSE 147 mg/dL (74-106); POTASSIUM 4.5 mmol/L (3.5-5.1); SODIUM SERUM 132 mmol/L (136-145); UREA NITROGEN, BLOOD 15 mg/dL (7-18)
[2018-12-17 22:31] LABS: APPEARANCE,URINE Slightly Cloudy (CLEAR); BILIRUBIN,URINE Negative (NEGATIVE); BLOOD, URINE Trace-intact Ery/uL (NEGATIVE); COLOR,URINE Yellow (YELLOW); KETONES,URINE Negative (NEGATIVE); LEUKOCYTE ESTERASE ,URINE Negative (NEGATIVE); NITRITE, URINE Negative (NEGATIVE); PH,URINE 7.5 (5.0-8.0); PROTEIN,URINE Negative (NEGATIVE); UGLUCOSE Negative (NEGATIVE); UROBILINOGEN,URINE 0.2 EU/dL (0.2)
--- NOTE | 2018-12-17 22:34 | NUR ---
XRAY AT BEDSIDE.
[2018-12-17 22:36] LABS: ALANINE AMINOTRANSFERASE 22 U/L (12-78); ALBUMIN 3.9 g/dL (3.4-5.0); ALKALINE PHOSPHATASE 110 U/L (46-116); ASPARTATE AMINOTRANSFERASE 13 U/L (15-37); BILIRUBIN,DIRECT 0.1 mg/dL (0.0-0.2); BILIRUBIN,TOTAL 0.3 mg/dL (0.2-1.0); LIPASE 161 U/L (73-393)
[2018-12-17 23:05] LABS: BACTERIA,URINE Few /HPF (None Seen); SQUAMOUS EPITHELIAL CELL,UR Few /HPF (None Seen); URINE AMORPHOUS PHOSPHATES Moderate /HPF (None Seen); WBC,URINE 0-2 /HPF (0-3)
--- NOTE | 2018-12-17 23:59 | NUR ---
Patient discharged to home in stable condition. Written and verbal after care instructions given. Patient verbalizes understanding of instruction. IV removed. Catheter intact and site benign. Pressure and 4x4 applied to site. No bleeding noted.
[2018-12-18] VITALS: BP 150/70
[2018-12-18] MEDS ORDERED: BLOO-668 IN (17:11)
== END 2018-12-18 00:12 | disposition home or self-care (01) ==
LOC: ER 20:59
DX: R11.2 Nausea with vomiting, unspecified (principal); I10 Essential (primary) hypertension; E11.9 Type 2 diabetes mellitus without complications; G30.9 Alzheimer's disease, unspecified; Z79.82 Long term (current) use of aspirin; Z79.4 Long term (current) use of insulin
CPT/HCPCS: 36415; 74018; 80048; 80076; 81001; 83690; 85025; 85730; 93005; 96374; 99284; A4606; J2405; J7040; 81000-TC

== ENCOUNTER 2018-12-18 16:18 | Inpatient (IN) | payer MEDICARE, OTHER ==
[~2018-12-18] VITALS: Ht 147.3 cm; Wt 47.6 kg
[2018-12-18] MEDS ORDERED: ONDANSETRON HCL/PF 4 MG/2 ML VIAL IVP ONE (17:00)
[2018-12-18] MEDS ORDERED: IV NS 0.9% 500 ML BAG IV ONE (17:00)
[2018-12-18] MEDS ORDERED: PANTOPRAZOLE 40 MG VIAL IV ONE ×2 (17:00→18:00)
[2018-12-18] MEDS ORDERED: PANTOPRAZOLE 40 MG VIAL ONE (17:03)
[2018-12-18] MEDS ORDERED: ONDANSETRON HCL/PF 4 MG/2 ML VIAL ONE (17:03)
[2018-12-18 17:06] LABS: BASOPHILS # (AUTO) 0.1 /CMM (0.0-0.2); BASOPHILS % (AUTO) 0.5 % (0.0-2.0); HEMATOCRIT 48 % (33-45); HEMOGLOBIN 15.9 g/dL (11.5-14.8); LYMPHOCYTES # (AUTO) 0.9 /CMM (0.8-4.8); LYMPHOCYTES % (AUTO) 6.4 % (20.0-44.0); MEAN CORPUSCULAR HGB CONC 33 g/dl (31.0-36.0); MEAN CORPUSCULAR VOLUME 97 fL (82-100); MONOCYTES # (AUTO) 0.4 /CMM (0.1-1.30); MONOCYTES % (AUTO) 3.1 % (2.0-12.0); NEUTROPHILS # (AUTO) 12.7 /CMM (1.8-8.9); PLATELET COUNT (AUTO) 207 /CMM (150-450); WHITE BLOOD COUNT (AUTO) 14.1 K/uL (4.3-11.0)
[2018-12-18] MEDS ORDERED: BLOO-668 IN (17:11)
--- NOTE | 2018-12-18 17:18 | NUR ---
[facility] Addendum: 12/18/18 at 1718 by ABHI CALL FROM [facility],ROOM 108
--- NOTE | 2018-12-18 17:30 | NUR ---
BIB RA 860 FROM HOME, PERSISTENT VOMITING SINCE SHE WAS SENT HOME LAST NIGHT FROM HERE. PT NON VERBAL, EYES CLOSED, RR EVEN & UNLABORED. PT SEEN & EVAL'D BY DR. CHANDLER. 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 MEDICATED FOR N/V. FAMILY @ BS & WILL CONT TO MONITOR.
[2018-12-18 17:52] LABS: CALCIUM, SERUM 9.3 mg/dL (8.5-10.1); CARBON DIOXIDE 23 mmol/L (21-32); CHLORIDE 98 mmol/L (98-107); GLUCOSE 189 mg/dL (74-106); POTASSIUM 4.4 mmol/L (3.5-5.1); SODIUM SERUM 133 mmol/L (136-145); UREA NITROGEN, BLOOD 17 mg/dL (7-18)
[2018-12-18 18:06] LABS: ALANINE AMINOTRANSFERASE 298 U/L (12-78); ALBUMIN 3.4 g/dL (3.4-5.0); ALKALINE PHOSPHATASE 125 U/L (46-116); ASPARTATE AMINOTRANSFERASE 482 U/L (15-37); BILIRUBIN,DIRECT 1.4 mg/dL (0.0-0.2); BILIRUBIN,TOTAL 1.8 mg/dL (0.2-1.0); TOTAL PROTEIN, SERUM 8.1 g/dL (6.4-8.2)
[2018-12-18 18:31] LABS: LIPASE 12047 U/L (73-393)
--- NOTE | 2018-12-18 18:37 | NUR ---
PT BACK FROM CT SCAN VIA GURNEY. PT ASLEEP, EYES CLOSED & SNORING. NOT DROOLING & N/V NOTED, RR EVEN & UNLABORED WILL CONT TO MONITOR. FAMILY @ BS.
--- NOTE | 2018-12-18 19:15 | NUR ---
RECEIVED REPORT FROM GLENN GARCIA FOR [facility]OWN
--- NOTE | 2018-12-18 19:29 | NUR ---
US AT BEDSIDE
--- NOTE | 2018-12-18 19:56 | NUR ---
GAVE REPORT TO ROSY GARCIA FOR BROWN
--- NOTE | 2018-12-18 20:20 | NUR ---
RN ADMITTING NOTES ADMITTED PT FROM ER VIA [facility] WITH ADMITTING DX:ACUTE PANCREATITIS. AT BEDSIDE. PT IS NON VERBAL APPEARS LETHARGIC BUT AROUSABLE TO LIGHT PAIN. ON ROOM AIR, NO SOB NOTED. GTUBE CLAMPED, INTACT AND IN PLACED. WITH INTACT AND PATENT LHAND G20 HEPLOCK. VS TAKEN AND INITIAL ASSESSMENT DONE. SAFETY MEASURES IN PLACED. CALL LIGHT WITHIN EASY REACH. WILL CONT TO MONITOR
--- NOTE | 2018-12-18 20:25 | NUR ---
PT TRANSFERRED PER ACLS PROTOCOL
[2018-12-18 20:30] VITALS: BP 151/91
[2018-12-18] MEDS ORDERED: ONDANSETRON HCL/PF 4 MG/2 ML VIAL IVP PRN (20:30)
[2018-12-18] MEDS ORDERED: DEXTROSE 50%-WATER 50 ML DISP.SYRIN IV PRN (20:30)
[2018-12-18] MEDS: PANTOPRAZOLE 40 MG VIAL IV SCH (20:37)
[2018-12-18] MEDS: IV NS 0.9% 1,000 ML IV PRN (20:37)
[2018-12-19] VITALS (7 sets, daily range): BP systolic 98–160; BP diastolic 54–105
[2018-12-19] MEDS: BLOOD SUGAR DIAGNOSTIC 1 EACH STRIP IN SCH ×5 (00:19→18:10)
[2018-12-19] MEDS: HYDROMORPHONE INJ 0.5 MG/0.5 ML SYRINGE IV PRN (03:25)
[2018-12-19] MEDS: IV NS 0.9% 1,000 ML IV PRN ×4 (06:43→22:56)
--- NOTE | 2018-12-19 06:53 | NUR ---
RN NOTES PT IN STABLE CONDITION. NO ACUTE CHANGES THROUGHOUT SHIFT. ALL NEEDS ANTICIPATED. SAFETY MEASURES OBSERVED AT ALL TIMES. ENDORSED TO AM SHIFT RN FOR BROWN
[2018-12-19 07:44] LABS: HEMATOCRIT 54 % (33-45); LYMPHOCYTES # (AUTO) 1.1 /CMM (0.8-4.8); LYMPHOCYTES % (AUTO) 7.8 % (20.0-44.0); MEAN CORPUSCULAR HGB CONC 32 g/dl (31.0-36.0); MEAN CORPUSCULAR VOLUME 101 fL (82-100); MONOCYTES % (AUTO) 7.2 % (2.0-12.0); NEUTROPHILS # (AUTO) 11.7 /CMM (1.8-8.9); PLATELET COUNT (AUTO) 209 /CMM (150-450); RED BLOOD CELL COUNT(AUTO) 5.32 MIL/uL (4.0-5.2); WHITE BLOOD COUNT (AUTO) 13.8 K/uL (4.3-11.0)
--- NOTE | 2018-12-19 08:00 | NUR ---
DANIELLE/RN NOTES: RECEIVED PT. IN BED W/ HOB ELEVATED. ON TELE MONITOR W/ ST 117. OBTUNDED AND NON VERBAL. NO FACIAL GRIMACES OR MOANING NOTED. NO N/V NOTED. DAUGHTER VISITED PT. INCONTINENT OF B/B. WILL CONTINUE TO MONITOR.
[2018-12-19] MEDS: PANTOPRAZOLE 40 MG VIAL IV SCH (09:22)
[2018-12-19 11:05] LABS: CARBON DIOXIDE 17 mmol/L (21-32); CHLORIDE 106 mmol/L (98-107); CREATININE 2.2 mg/dL (0.6-1.3); GLUCOSE 144 mg/dL (74-106); MAGNESIUM 2.1 mg/dL (1.8-2.4); PHOSPHORUS 2.9 mg/dL (2.5-4.9); POTASSIUM 4.5 mmol/L (3.5-5.1); SODIUM SERUM 140 mmol/L (136-145); UREA NITROGEN, BLOOD 27 mg/dL (7-18)
[2018-12-19 11:55] LABS: CHOLESTEROL 105 mg/dL (<200); HDL CHOLESTEROL 41 mg/dL (40-60); LDL 61 mg/dL (0-99); LIPASE 12358 U/L (73-393); TRIGLYCERIDES 92 mg/dL (30-150)
[2018-12-19] MEDS ORDERED: IV NS 0.9% 1,000 ML IV PRN ×2 (12:30→17:00)
--- NOTE | 2018-12-19 12:37 | NUR ---
TELE/RN NOTES: REPORT GIVEN TO RN NURSE REFUGIO FOR BROWN.
[2018-12-19 13:14] LABS: ALBUMIN 2.8 g/dL (3.4-5.0); BILIRUBIN,DIRECT 4.7 mg/dL (0.0-0.2); BILIRUBIN,TOTAL 5.3 mg/dL (0.2-1.0)
[2018-12-19] MEDS: PILOCARPINE 2% OPTH DROP 15 ML BOTTLE EACHEYE SCH (18:42)
--- NOTE | 2018-12-19 19:30 | NUR ---
RN CLOSING NOTES GAVE REPORT TO CARBON CUTTER RN. PT HAS L HAND 20 GAUGE RUNNING AT 150 ML/HR. NO APPARENT SIGNS OF DISTRESS. FAMILY AT BEDSIDE.
[2018-12-20] VITALS: BP 151/96
[2018-12-20] MEDS: INSULIN REGULAR, HUMAN 100 UNIT/ML 3 ML VIAL SQ PRN ×4 (00:54→17:59)
[2018-12-20] MEDS: BLOOD SUGAR DIAGNOSTIC 1 EACH STRIP IN SCH ×5 (00:55→23:47)
[2018-12-20] MEDS: HYDROMORPHONE INJ 0.5 MG/0.5 ML SYRINGE IV PRN (01:33)
[2018-12-20 04:00] VITALS: BP 132/78
[2018-12-20] MEDS: IV NS 0.9% 1,000 ML IV PRN ×3 (05:54→21:52)
[2018-12-20 06:30] LABS: EOSINOPHILS % (AUTO) 0.6 % (0.0-6.0); HEMATOCRIT 45 % (33-45); HEMOGLOBIN 14.8 g/dL (11.5-14.8); LYMPHOCYTES # (AUTO) 0.7 /CMM (0.8-4.8); LYMPHOCYTES % (AUTO) 4.9 % (20.0-44.0); MEAN CORPUSCULAR HGB CONC 33 g/dl (31.0-36.0); MEAN CORPUSCULAR VOLUME 99 fL (82-100); MONOCYTES # (AUTO) 0.7 /CMM (0.1-1.30); MONOCYTES % (AUTO) 4.9 % (2.0-12.0); NEUTROPHILS # (AUTO) 12.6 /CMM (1.8-8.9); NEUTROPHILS % (AUTO) 89.6 % (43.0-81.0); PLATELET COUNT (AUTO) 154 /CMM (150-450); RED BLOOD CELL COUNT(AUTO) 4.55 MIL/uL (4.0-5.2)
--- NOTE | 2018-12-20 06:33 | NUR ---
RN NOTES NO SIGNIFICANT CHANGE OF CONDITION. IN BED, WITH EYES CLOSE. NO DISTRESS NOTED. BREATHING EVEN AND UNLABORED. OBTUNDED. WITH FACIAL GRIMACING AND NOTED NAUSEOUS, ZOFRAN AND DILAUDID ADMINISTERED. WITH HELP AND RELIEF. NO EPISODE OF VOMITING. FOR MRCP AND ERCP TODAY. CONSENT SIGNED. KEPT CLEAN AND DRY. WILL ENDORSE TO NEXT SHIFT FOR CONTINUITY OF CARE.
[2018-12-20 06:43] LABS: ALANINE AMINOTRANSFERASE 121 U/L (12-78); ALBUMIN 2.1 g/dL (3.4-5.0); ALKALINE PHOSPHATASE 82 U/L (46-116); ASPARTATE AMINOTRANSFERASE 61 U/L (15-37); BILIRUBIN,DIRECT 1.9 mg/dL (0.0-0.2); BILIRUBIN,TOTAL 2.3 mg/dL (0.2-1.0); CALCIUM, SERUM 6.7 mg/dL (8.5-10.1); CARBON DIOXIDE 21 mmol/L (21-32); CHLORIDE 113 mmol/L (98-107); CREATININE 1.7 mg/dL (0.6-1.3); GLUCOSE 141 mg/dL (74-106); POTASSIUM 3.7 mmol/L (3.5-5.1); SODIUM SERUM 143 mmol/L (136-145); TOTAL PROTEIN, SERUM 6.3 g/dL (6.4-8.2); UREA NITROGEN, BLOOD 32 mg/dL (7-18)
[2018-12-20 06:44] LABS: LIPASE 2320 U/L (73-393)
[2018-12-20 08:00] VITALS: BP 157/86
--- NOTE | 2018-12-20 08:20 | NUR ---
TEXTED DR. AHN FOR MRI APPROVAL.
[2018-12-20] MEDS: ATROPINE SULFATE OPHTH SOLN 15 ML BOTTLE LEFTEYE SCH (09:00)
[2018-12-20] MEDS: PANTOPRAZOLE 40 MG VIAL IV SCH (09:09)
[2018-12-20] MEDS: PILOCARPINE 2% OPTH DROP 15 ML BOTTLE EACHEYE SCH ×2 (09:09→17:42)
[2018-12-20 12:00] VITALS: BP 154/88
[2018-12-20] MEDS: TIMOLOL 0.5% SOLN OPHTH 5 ML BOTTLE EACHEYE SCH ×2 (14:02→17:42)
[2018-12-20 16:00] VITALS: BP 142/74
[2018-12-20] MEDS ORDERED: GLUCERNA 1.2 1,000 ML BOTTLE GT SCH (17:30)
--- NOTE | 2018-12-20 19:39 | NUR ---
RN CLOSING NOTE PATIENT SCHEDULED FOR MRI TODAY TO RULE OUT GALSTONES. MRI DONE GI DR AWARE. RESUME FEEDING START AT 200CC AND INCREASE TO [address] NO NEED FOR EGD STUDY CAN RESUME FEEDING. RESUME MEDS VIA G TUBE . IV PATENT AND INTACT. RUNNING 150 CC HR. ENDORSED TO NIGHT NURSE, CALLED [employer] [id number] TIMES TO GET FEEDING PUMP WITH NO RESPONSE. NIGHT NURSE AWARE.
[2018-12-20 20:00] VITALS: BP 152/81
[2018-12-20] MEDS: JEVITY 1.2 CAL 1,000 ML BOTTLE GT PRN (20:24)
--- NOTE | 2018-12-20 20:30 | NUR ---
RN NOTES GUM SCORING MACHINE OPERATOR TOOK PATIENT BLOOD PRESSURE AND IT WAS 198/81.. RECHECK THE BLOOD PRESSURE IT WAS 161/110... WE'LL CALL THE
--- NOTE | 2018-12-20 21:00 | NUR ---
RN NOTES RECHECK PATIENT BLOOD PRESSURE IT WENT DOWN TO 152/86, HR-81
--- NOTE | 2018-12-20 21:40 | NUR ---
RADHA NOTES SPOKE TO BRIT STERLING AND INFORMED HIM REGARDING PATIENT BLOOD PRESSURE OF 161/110.. BRIT STERLING ORDERED HYDRALAZINE 10MG IV PRN FOR SBP>160.. ORDER NOTED AND CARRIED OUT Addendum: 12/20/18 at 2304 by RICKY LIU RN RIGHT TIME 2039
--- NOTE | 2018-12-20 22:45 | NUR ---
RN NOTES NOTICED PATIENT IS HAVING SEIZURE ON AND OFF ... CHARGE NURSE MADE AWARE .. WE WILL CALL
--- NOTE | 2018-12-20 22:45 | NUR ---
RN NOTES INFORMED MD ABOUT NEW ONSET SEIZURE.. WAITING FOR THE ORDER
--- NOTE | 2018-12-20 23:00 | NUR ---
RN NOTES CHECK PATIENT RESIDUAL.. IT'S MORE THAN STOPPED THE FEEDING AND WE WILL CHECK IT AGAIN AFTER 2 HRS ... CHARGE NURSE MADE AWARE Addendum: 12/21/18 at 0649 by RICKY LIU RN G-TUBE FEEDING RESIDUAL MORE THAN 250ML
[2018-12-20] MEDS ORDERED: LORAZEPAM INJ 2 MG/ML VIAL ONE (23:39)
[2018-12-20] MEDS: LORAZEPAM INJ 2 MG/ML VIAL IV PRN (23:42)
--- NOTE | 2018-12-20 23:49 | NUR ---
RN NOTES PATIENT SEIZURE STOPPED AND AFTER 35 MINS STARTED AGAIN ATIVAN 1 MG IV GIVEN ORDERED, VB/S STABLE
[2018-12-21] VITALS: BP 155/98
--- NOTE | 2018-12-21 02:00 | NUR ---
RN NOTES CHECKED. G-TUBE FEEDING RESIDUAL LESS THEN 50ML.. RESUMED G-TUBE FEEDING. WILL CONTINUE TO MONITOR
[2018-12-21] MEDS: hydrALAZINE HCL IV 20 MG VIAL IV PRN ×2 (03:45→10:07)
[2018-12-21] MEDS: BLOOD SUGAR DIAGNOSTIC 1 EACH STRIP IN SCH ×4 (05:25→23:10)
[2018-12-21] MEDS: IV NS 0.9% 1,000 ML IV PRN (05:47)
--- NOTE | 2018-12-21 06:50 | NUR ---
RN NOTES SLEEPING BUT AROUSABLE, NOT IN DISTRESS, NO PAIN NOTED, MORNING CARE RENDERED, HOMARX2, PT. NEEDS ATTENDED
[2018-12-21] MEDS: LORAZEPAM INJ 2 MG/ML VIAL IV PRN (07:03)
--- NOTE | 2018-12-21 07:06 | NUR ---
RN NOTES PT. IS HAVING SEIZURE AGAIN- ATIVAN 0.5MG IV GIVEN ORDERED,V/S ATB.E .. CHARGE NURSE MADE AWARE. ENDORSED TO DAYSHIFT NURSE
[2018-12-21 08:00] VITALS: BP 167/84
[2018-12-21] MEDS: ATROPINE SULFATE OPHTH SOLN 15 ML BOTTLE LEFTEYE SCH (09:00)
[2018-12-21 09:45] LABS: EOSINOPHILS % (AUTO) 0.1 % (0.0-6.0); HEMATOCRIT 39 % (33-45); HEMOGLOBIN 12.9 g/dL (11.5-14.8); LYMPHOCYTES # (AUTO) 0.6 /CMM (0.8-4.8); LYMPHOCYTES % (AUTO) 4.8 % (20.0-44.0); MEAN CORPUSCULAR HGB CONC 33 g/dl (31.0-36.0); MEAN CORPUSCULAR VOLUME 97 fL (82-100); MONOCYTES # (AUTO) 0.6 /CMM (0.1-1.30); MONOCYTES % (AUTO) 4.6 % (2.0-12.0); NEUTROPHILS # (AUTO) 10.8 /CMM (1.8-8.9); NEUTROPHILS % (AUTO) 90.5 % (43.0-81.0); PLATELET COUNT (AUTO) 142 /CMM (150-450); RED BLOOD CELL COUNT(AUTO) 4.02 MIL/uL (4.0-5.2)
[2018-12-21 10:01] LABS: ALANINE AMINOTRANSFERASE 73 U/L (12-78); ALBUMIN 2.1 g/dL (3.4-5.0); ALKALINE PHOSPHATASE 74 U/L (46-116); ASPARTATE AMINOTRANSFERASE 24 U/L (15-37); BILIRUBIN,TOTAL 1.2 mg/dL (0.2-1.0); CALCIUM, SERUM 6.3 mg/dL (8.5-10.1); CARBON DIOXIDE 20 mmol/L (21-32); CHLORIDE 116 mmol/L (98-107); CREATININE 1.1 mg/dL (0.6-1.3); GLUCOSE 166 mg/dL (74-106); MAGNESIUM 1.8 mg/dL (1.8-2.4); PHOSPHORUS 1.1 mg/dL (2.5-4.9); SODIUM SERUM 150 mmol/L (136-145); TOTAL PROTEIN, SERUM 6.1 g/dL (6.4-8.2); UREA NITROGEN, BLOOD 23 mg/dL (7-18)
[2018-12-21] MEDS: PILOCARPINE 2% OPTH DROP 15 ML BOTTLE EACHEYE SCH ×2 (10:03→17:26)
[2018-12-21 10:04] LABS: CREATINE KINASE, TOTAL 697 U/L (26-192)
[2018-12-21] MEDS: PANTOPRAZOLE 40 MG VIAL IV SCH (10:04)
[2018-12-21] MEDS: TIMOLOL 0.5% SOLN OPHTH 5 ML BOTTLE EACHEYE SCH ×2 (10:04→17:26)
[2018-12-21 10:20] LABS: POTASSIUM 2.8 mmol/L (3.5-5.1)
[2018-12-21] MEDS: ENALAPRIL MALEATE (10 MG) 10 MG TABLET GT SCH ×3 (11:30→17:27)
[2018-12-21] MEDS: AMLODIPINE BESYLATE 2.5 MG TABLET GT SCH ×3 (11:30→17:26)
[2018-12-21 12:00] VITALS: BP_SYST 107; BP_SYST 140; BP_DIAS 54; BP_DIAS 80
[2018-12-21] MEDS: phenytoin SODIUM IV 500 MG in IV NS 0.9% 50 ML IV ONE ×2 (12:00→12:41)
[2018-12-21] MEDS: CYANOCOBALAMIN 500 MCG TABLET PO SCH (12:53)
[2018-12-21] MEDS: POTASSIUM CHLORIDE 20 MEQ POWDER PACKET NG SCH ×4 (12:53→16:15)
[2018-12-21] MEDS: CARBAMAZEPINE 200 MG TABLET GT SCH (12:54)
[2018-12-21] MEDS: CHOLECALCIFEROL 1,000 UNIT TABLET (VIT D3) PO SCH (12:54)
[2018-12-21] MEDS: DONEPEZIL 5 MG TABLET GT SCH (12:54)
--- NOTE | 2018-12-21 14:47 | NUR ---
RN NOTE SPOKE WITH FLAME PLANER DAJA ABOUT HIGH RESIDUALS, 250 ML IN AM. POTASSIUM LEVEL, NEED TO REVIEW HOME MED, AND PT BEING TACHYCARDIC. DR GRAY CONSULTED. DR YEBOAH ORDERED DILANTIN FOR THE PT BUT PT'S DAUGHTER REFUSED IT STATING THAT SHE WANTED TO SPEAK WITH ND FIRST. DR YEBOAH CONTACTED AND SHE REFUSED TO SPEAK WITH PT'S DAUGHTER AT THIS TIME. RISKS AND BENEFITS EXPLAINED, STILL REFUSED. LATER DAUGHTER MENTIONED THAT POSSIBLE CAUSE OF SEIZURE IS THE HOME MED TEGRETOL BEING HELD. WILL NOTIFY . TEGRETOL CONTINUED BY DR GRAY, AND ADMINISTERED. WILL MONITOR PT CLOSELY. SAFETY MEASURES IN PLACE, NO SEIZURE ACTIVITY NOTED. SIDE RAILS PADDED, PT HOB 30 DEGREE, RESIDUALS MONITORED.
[2018-12-21 16:00] VITALS: BP 147/77
[2018-12-21] MEDS ORDERED: NEUTRA PHOS 1 POWD.PACKET GT ONE (16:30)
[2018-12-21] MEDS: MEMANTINE HCL 5 MG TABLET PO SCH (17:26)
[2018-12-21 20:00] VITALS: BP 135/84
[2018-12-21] MEDS ORDERED: PHENYTOIN SODIUM IV 50 MG/ML VIAL IV SCH (20:00)
[2018-12-21] MEDS: HYDROMORPHONE INJ 0.5 MG/0.5 ML SYRINGE IV PRN (20:20)
--- NOTE | 2018-12-21 21:00 | NUR ---
CHANGER FIXER NOTES, PATIENT SLEEPING AT THIS TIME, WITH EYES CLOSED, BREATHING EVEN AND UNLABORED, EARLIER NOTED PATIENT I PAIN AND DILAUDID ADMINISTERED, AT THIS TIME PATIENT PATIENT RELAXED, NOS OB/ACUTE DISTRESS NOTED, IV ACCESS N LEFT HAND PATENT AND INTACT, GT IN PLACED WITH RESIDUAL 200ML, INFORMED BRIT SENIOR SOCCER COACH AND ORDERED TO KEEP THE GTF ON HOLD TWO MORE HOURS AND THEN CHECK RESIDUAL AGAIN AND START HALF RATE AFTER THAT, NOTED AND CARRIED OUT, ALL NEEDS PROVIDED, DRY AND CLEAN AT THIS TIME, WILL CONTINUE TO MONITOR CLOSELY.
[2018-12-22] VITALS: BP 121/64
[2018-12-22] MEDS: IV D5/0.45 NACL 1,000 ML IV PRN ×2 (00:23→13:15)
[2018-12-22 04:00] VITALS: BP 150/84
[2018-12-22] MEDS: LORAZEPAM INJ 2 MG/ML VIAL IV PRN (06:14)
--- NOTE | 2018-12-22 06:14 | NUR ---
ATTENDANT LODGING FACILITIES NOTES, PATIENT NOTED WITH SEIZURE ACTIVITY, AND EXCESSIVE SALIVATION, PATIENT PLACED ON HER SIDE AND SUCTIONED SECRETIONS, NO TREMORS OR REPETITIVE BODY MOVEMENTS NOTED, ONLY LIPS. ATIVAN ADMINISTERED AT THIS TIME ORDERED, VS 177/101, 120-130S, WILL CONTINUE TO MONITOR CLOSELY.
[2018-12-22] MEDS: BLOOD SUGAR DIAGNOSTIC 1 EACH STRIP IN SCH ×3 (06:24→18:15)
--- NOTE | 2018-12-22 06:52 | NUR ---
SOLAR INSTALLER PV NOTES, PATIENT IN BED, WITH EYES CLOSED, CALM AND RELAXED, NO SEIZURE ACTIVITY NOTED AT THIS TIME, BREATHING EVEN AND UNLABORED, NO SOB/ACUTE DISTRESS NOTED, IV ACCESS ON LEFT HAND PATENT AND INTACT, GT IN PLACED CONTINUE WITH RESIDUAL 200ML, BRIT SENIOR AWARE AND ORDERED TO INITIATE D5 1/2 NS AT 75ML/HR, ALL NEEDS PROVIDED, DRY AND CLEAN AT THIS TIME, WILL ENDORSE CONTINUITY OF CARE TO ONCOMING NURSE.
--- NOTE | 2018-12-22 07:15 | NUR ---
RN OPENING NOTE RECEIVED PATIENT IN BED, OBTUNDED AND IS NON VERBAL. ON TELE MONITOR SINUS RHYTHM. GT FEEDING ON HOLD AT THIS TIME DUE TO HIGH AMOUNT OF RESIDUAL. HAS A LEFT HAND IV G#20, WITH D5 HALF NS RUNNING AT 75 ML/HR. PATIENT'S BED LOCKED AND IN LOW POSITION. CALL LIGHT WITHIN REACH. WILL CONTINUE TO MONITOR PATIENT THROUGHOUT THE SHIFT
[2018-12-22 07:27] LABS: ALANINE AMINOTRANSFERASE 59 U/L (12-78); ALBUMIN 2.2 g/dL (3.4-5.0); ALKALINE PHOSPHATASE 102 U/L (46-116); ASPARTATE AMINOTRANSFERASE 22 U/L (15-37); BILIRUBIN,TOTAL 1.4 mg/dL (0.2-1.0); CALCIUM, SERUM 6.8 mg/dL (8.5-10.1); CARBON DIOXIDE 22 mmol/L (21-32); CHLORIDE 117 mmol/L (98-107); CREATININE 0.9 mg/dL (0.6-1.3); GLUCOSE 156 mg/dL (74-106); LIPASE 193 U/L (73-393); MAGNESIUM 2.1 mg/dL (1.8-2.4); PHOSPHORUS 1.2 mg/dL (2.5-4.9); POTASSIUM 3.8 mmol/L (3.5-5.1); SODIUM SERUM 150 mmol/L (136-145); TOTAL PROTEIN, SERUM 6.7 g/dL (6.4-8.2); UREA NITROGEN, BLOOD 23 mg/dL (7-18)
[2018-12-22 07:31] LABS: BASOPHILS % (AUTO) 0.1 % (0.0-2.0); EOSINOPHILS % (AUTO) 0.2 % (0.0-6.0); HEMATOCRIT 45 % (33-45); HEMOGLOBIN 15.1 g/dL (11.5-14.8); LYMPHOCYTES # (AUTO) 0.6 /CMM (0.8-4.8); LYMPHOCYTES % (AUTO) 6.7 % (20.0-44.0); MEAN CORPUSCULAR HGB CONC 34 g/dl (31.0-36.0); MEAN CORPUSCULAR VOLUME 97 fL (82-100); MONOCYTES # (AUTO) 0.4 /CMM (0.1-1.30); MONOCYTES % (AUTO) 3.7 % (2.0-12.0); NEUTROPHILS # (AUTO) 8.5 /CMM (1.8-8.9); NEUTROPHILS % (AUTO) 89.3 % (43.0-81.0); PLATELET COUNT (AUTO) 170 /CMM (150-450); RED BLOOD CELL COUNT(AUTO) 4.63 MIL/uL (4.0-5.2); WHITE BLOOD COUNT (AUTO) 9.5 K/uL (4.3-11.0)
[2018-12-22 08:00] VITALS: BP 104/56
[2018-12-22 08:14] LABS: APPEARANCE,URINE CLOUDY (CLEAR); BILIRUBIN,URINE NEGATIVE (NEGATIVE); BLOOD, URINE 3+ Ery/uL (NEGATIVE); COLOR,URINE YELLOW (YELLOW); KETONES,URINE NEGATIVE (NEGATIVE); LEUKOCYTE ESTERASE ,URINE 1+ (NEGATIVE); NITRITE, URINE POSITIVE (NEGATIVE); PROTEIN,URINE 1+ mg/dl (NEGATIVE); UGLUCOSE NEGATIVE (NEGATIVE)
[2018-12-22 08:21] LABS: CREATININE, URINE 46.8 MG/DL (30.0-125.0)
[2018-12-22] MEDS: PANTOPRAZOLE 40 MG VIAL IV SCH (08:45)
[2018-12-22] MEDS: CHOLECALCIFEROL 1,000 UNIT TABLET (VIT D3) PO SCH (08:45)
[2018-12-22] MEDS: CARBAMAZEPINE 200 MG TABLET GT SCH (08:46)
[2018-12-22] MEDS: MEMANTINE HCL 5 MG TABLET PO SCH ×2 (08:46→17:01)
[2018-12-22] MEDS: CYANOCOBALAMIN 500 MCG TABLET PO SCH (08:46)
[2018-12-22] MEDS: DONEPEZIL 5 MG TABLET GT SCH (08:47)
[2018-12-22 08:48] LABS: BACTERIA,URINE 4+ /HPF (None Seen)
[2018-12-22] MEDS: ATROPINE SULFATE OPHTH SOLN 15 ML BOTTLE LEFTEYE SCH (08:48)
[2018-12-22] MEDS: PILOCARPINE 2% OPTH DROP 15 ML BOTTLE EACHEYE SCH ×2 (08:48→17:04)
[2018-12-22] MEDS: TIMOLOL 0.5% SOLN OPHTH 5 ML BOTTLE EACHEYE SCH ×2 (08:48→17:05)
[2018-12-22] MEDS: ENALAPRIL MALEATE (10 MG) 10 MG TABLET GT SCH ×2 (09:00→17:02)
[2018-12-22] MEDS: AMLODIPINE BESYLATE 2.5 MG TABLET GT SCH ×2 (09:00→17:02)
[2018-12-22] MEDS: ACETAMINOPHEN 650 MG/SUPP.RECT RC PRN (09:30)
[2018-12-22 09:43] LABS: EOSINOPHIL,URINE None Seen
--- NOTE | 2018-12-22 10:00 | NUR ---
RN NOTE HELD THE PATIENT'S BLOOD PRESSURE MEDS - AMLODIPINE AND ENALAPRIL, DUE TO BLOOD PRESSURE OF 106/54. AWARE.
[2018-12-22 11:46] LABS: ABG BASE EXCESS -4.8 mmol/L; ABG OXYGEN SATURATION 96.9 % (92.0-98.5); ABG PCO2 29.7 mmHg (35.0-45.0); ABG PH 7.415 (7.350-7.450); COHb 0.2 % (0.5-1.5); MetHb 0.8 % (0.0-1.5); O2Hb 95.9 % (94.0-97.0); SITE, ABG Right Radial; VENT MODE, BG 4L N/C
[2018-12-22] MEDS: INSULIN REGULAR, HUMAN 100 UNIT/ML 3 ML VIAL SQ PRN ×2 (11:51→18:14)
[2018-12-22 12:00] VITALS: BP 133/52
[2018-12-22] MEDS ORDERED: NEUTRA PHOS 1 POWD.PACKET NG ONE (13:00)
[2018-12-22] MEDS: PHENYTOIN SODIUM IV 50 MG/ML VIAL IV SCH ×2 (13:04→21:00)
[2018-12-22] MEDS ORDERED: ONDA4VIA23 IVP (14:00)
[2018-12-22] MEDS ORDERED: PANT40VI IV (14:00)
[2018-12-22] MEDS ORDERED: ACET650S11 RC (14:00)
[2018-12-22] MEDS ORDERED: INSU100V28 SQ (14:00)
[2018-12-22] MEDS ORDERED: PHEN50VI4 IV (14:00)
[2018-12-22] MEDS ORDERED: LORA2VIA11 IV (14:00)
[2018-12-22] MEDS ORDERED: LACT-209 GT (14:00)
[2018-12-22] MEDS ORDERED: HYDR20VI4 IV (14:00)
[2018-12-22 16:00] VITALS: BP 155/66
[2018-12-22] MEDS ORDERED: PHENYTOIN SODIUM IV 50 MG/ML VIAL IV SCH (17:30)
[2018-12-22] MEDS ORDERED: phenytoin SODIUM IV 500 MG in IV NS 0.9% 50 ML IV ONE (18:00)
[2018-12-22] MEDS ORDERED: IPRATROPIUM NEB FS 0.5 MG/2.5 ML AMPUL.NEB NEB PRN (18:30)
--- NOTE | 2018-12-22 19:39 | NUR ---
"RN CLOSING NOTE PATIENT IN BED, OBTUNDED AND IS NON VERBAL. GT FEEDING STILL ON HOLD DUE TO HIGH AMOUNT OF RESIDUAL. HAS A LEFT HAND IV G#20, WITH D5 HALF NS RUNNING AT 75 ML/HR. FAMILY ON BEDSIDE, ASKED FOR ATROVENT. ATROVENT CARRIED OUT AND ORDERED. FAMILY DECIDED FOR DNR|DNI. MADE GUICHO FARNSWORTH AWARE. ORDER CARRIED OUT. PATIENT'S BED LOCKED AND IN LOW POSITION. CALL LIGHT WITHIN REACH. WILL ENDORSE TO NOC SHIFT"
--- NOTE | 2018-12-22 19:40 | NUR ---
RN MS NOTES, PATIENT WITH EYES CLOSED, BREATHING EVEN AND UNLABORED, NO SOB/ACUTE DISTRESS NOTED, IV ACCESS IN LEFT HAND DISLODGED, WILL START ANOTHER LINE, GT IN PLACED WITH RESIDUAL 190ML, PATIENT CONTINUE ON IVF D5 1/2 NS AT 75ML/HR, ALL NEEDS PROVIDED, FAMILY AT BEDSIDE, BED LOCKED AND LOWEST POSITION, SEIZURE PRECAUTIONS IN PLACED, DRY AND CLEAN AT THIS TIME, WILL CONTINUE TO MONITOR CLOSELY.
[2018-12-22 20:00] VITALS: BP_SYST 100; BP_SYST 122; BP_DIAS 61; BP_DIAS 73
--- NOTE | 2018-12-22 21:00 | NUR ---
RN MS NOTES, DILANTIN SCHEDULED AT 2100 NON ADMINISTERED BECAUSE ADMINISTERED BY DAY NURSE AT 1930.
[2018-12-23] MEDS: BLOOD SUGAR DIAGNOSTIC 1 EACH STRIP IN SCH ×4 (00:23→18:23)
[2018-12-23] MEDS: METOCLOPRAMIDE HCL 10 MG TABLET PO SCH ×5 (00:24→23:45)
[2018-12-23] MEDS: IV D5/0.45 NACL 1,000 ML IV PRN ×2 (03:44→20:22)
[2018-12-23 04:00] VITALS: BP 120/73
[2018-12-23] MEDS: PHENYTOIN SODIUM IV 50 MG/ML VIAL IV SCH ×2 (05:43→13:03)
[2018-12-23] MEDS: ACETAMINOPHEN 650 MG/SUPP.RECT RC PRN (05:45)
--- NOTE | 2018-12-23 06:00 | NUR ---
RADHA MS NOTES, INSULIN NON ADMINISTERED, PATIENT GTF ON HOLD.
[2018-12-23] MEDS: INSULIN REGULAR, HUMAN 100 UNIT/ML 3 ML VIAL SQ PRN ×3 (06:32→18:25)
--- NOTE | 2018-12-23 07:00 | NUR ---
RN MS NOTES, PATIENT WITH EYES CLOSED, BREATHING EVEN AND UNLABORED, NO SOB/ACUTE DISTRESS NOTED, IV ACCESS IN LEFT CHEST, PATENT AND INTACT, GT IN PLACED STILL WITH RESIDUAL 180ML, PATIENT CONTINUE ON IVF D5 1/2 NS AT 75ML/HR, ALL NEEDS PROVIDED, NO SIGNIFICANT CHANGE IN CONDITION DURING THE NIGHT, BED LOCKED AND LOWEST POSITION, SEIZURE PRECAUTIONS IN PLACED, DRY AND CLEAN AT THIS TIME, WILL ENDORSE CONTINUITY OF CARE TO ONCOMING NURSE.
--- NOTE | 2018-12-23 07:10 | NUR ---
RN OPENING NOTE: RECEIVED PATIENT IN BED, OBTUNDED AND IS NON VERBAL. GT FEEDING ON HOLD AT THIS TIME DUE TO HIGH AMOUNT OF RESIDUAL. HAS A LEFT CHEST IV G#24, INSERTED LAST NIGHT, WITH D5 HALF NS RUNNING AT 75 ML/HR. PATIENT'S BED LOCKED AND IN LOW POSITION. CALL LIGHT WITHIN REACH. WILL CONTINUE TO MONITOR PATIENT THROUGHOUT THE SHIFT
[2018-12-23 08:00] VITALS: BP 144/70
[2018-12-23 08:09] LABS: *SPE A/G RATIO 0.7 (0.7-1.7); *SPE ALBUMIN 2.2 g/dL (2.9-4.4); *SPE ALPHA-1-GLOBULIN 0.4 g/dL (0.0-0.4); *SPE ALPHA-2-GLOBULIN 0.9 g/dL (0.4-1.0); *SPE BETA GLOBULIN 0.7 g/dL (0.7-1.3); *SPE GLOBULIN, TOTAL 3.2 g/dL (2.2-3.9); *SPE M-SPIKE Not Observed g/dL (Not Observed); *SPEGAMMA GLOBULIN 1.1 g/dL (0.4-1.8)
[2018-12-23] MEDS: CHOLECALCIFEROL 1,000 UNIT TABLET (VIT D3) PO SCH (08:27)
[2018-12-23 08:29] LABS: CARBAMAZEPINE (TEGRETOL) 6.8 ug/ml (4-11.9); PHENYTOIN (DILANTIN) 4.3 ug/ml (10.0-20.0)
[2018-12-23] MEDS: DONEPEZIL 5 MG TABLET GT SCH (08:37)
[2018-12-23] MEDS: ENALAPRIL MALEATE (10 MG) 10 MG TABLET GT SCH ×2 (08:38→16:55)
[2018-12-23] MEDS: PILOCARPINE 2% OPTH DROP 15 ML BOTTLE EACHEYE SCH ×2 (08:39→16:54)
[2018-12-23] MEDS: CARBAMAZEPINE 200 MG TABLET GT SCH (08:39)
[2018-12-23] MEDS: MEMANTINE HCL 5 MG TABLET PO SCH ×2 (08:39→16:55)
[2018-12-23] MEDS: CYANOCOBALAMIN 500 MCG TABLET PO SCH (08:39)
[2018-12-23] MEDS: PANTOPRAZOLE 40 MG VIAL IV SCH (08:39)
[2018-12-23] MEDS: TIMOLOL 0.5% SOLN OPHTH 5 ML BOTTLE EACHEYE SCH ×2 (08:39→16:54)
[2018-12-23] MEDS: ATROPINE SULFATE OPHTH SOLN 15 ML BOTTLE LEFTEYE SCH (08:39)
[2018-12-23] MEDS: AMLODIPINE BESYLATE 2.5 MG TABLET GT SCH ×2 (08:39→16:54)
[2018-12-23] MEDS: NEUTRA PHOS 1 POWD.PACKET PO SCH ×2 (10:46→16:57)
[2018-12-23 14:17] LABS: PTH, INTACT 136 pg/mL (15-65)
--- NOTE | 2018-12-23 14:30 | NUR ---
RN NOTE MIDLINE WAS INSERTED TODAY - RIGHT UPPER ARM. INTACT, PATENT AND SALINE FLUSHED
[2018-12-23 16:00] VITALS: BP 134/76
[2018-12-23] MEDS: CARBAMAZEPINE 200 MG TABLET PO SCH (16:58)
[2018-12-23] MEDS: JEVITY 1.2 CAL 1,000 ML BOTTLE GT PRN (17:49)
--- NOTE | 2018-12-23 19:54 | NUR ---
RN CLOSING NOTE PATIENT IN BED OBTUNDED. GAVE REPORT TO NOC SHIFT NURSE. REGARDING THE GT FEEDING STARTED AT 10ML/HR. ALSO MENTIONED ABOUT ANGEL, PATIENT'S DAUGHTER WANTS TO HAVE A PHONE CALL FROM GUICHO KENYON. PATIENT IS STABLE AND FAMILY ON BEDSIDE.
[2018-12-23 20:00] VITALS: BP 109/73
--- NOTE | 2018-12-23 20:20 | NUR ---
RN MS NOTES, PATIENT WITH EYES CLOSED, BREATHING EVEN AND UNLABORED, NO SOB/ACUTE DISTRESS NOTED, IV ACCESS IN LEFT CHEST AND VIVIEN MIDLINE PATENT AND INTACT, PATIENT CONTINUE ON IVF D5 1/2 NS AT 75ML/HR INFUSING WELL AND PATIENT TOLERATED WELL, AT BEDSIDE, AND TYRA KENYON ENTERPRISE INFRASTRUCTURE ARCHITECT ASSESSING PATIENT AT THIS TIME, INFORMED THAT HE WILL REVIEW THE LABS FOR THE MORNING, AND CM TO F/U WITH [facility] FOR A BED, IF BED UNAVAILABLE TOMORROW, POSSIBLE DC HOME TO F/U WITH GI DR, BED LOCKED AND LOWEST POSITION, SEIZURE PRECAUTIONS IN PLACED, DRY AND CLEAN AT THIS TIME, WILL CONTINUE TO MONITOR CLOSELY.
[2018-12-23] MEDS: PHENYTOIN SUSP UDC 100 MG/4 ML UDC GT SCH (20:22)
[2018-12-23] MEDS ORDERED: LEVOFLOXACIN 250 MG /D5W 50 ML 250 MG in PREMIX 1 EA IV SCH (23:30)
[2018-12-23] MEDS ORDERED: LEVOFLOXACIN 250 MG /D5W 50 ML 50 ML IV ONE (23:41)
[2018-12-24] MEDS: BLOOD SUGAR DIAGNOSTIC 1 EACH STRIP IN SCH ×4 (00:10→18:00)
[2018-12-24] MEDS: INSULIN REGULAR, HUMAN 100 UNIT/ML 3 ML VIAL SQ PRN ×3 (00:34→12:25)
[2018-12-24 04:00] VITALS: BP 124/79
[2018-12-24] MEDS: PHENYTOIN SUSP UDC 100 MG/4 ML UDC GT SCH ×2 (04:54→12:26)
[2018-12-24] MEDS: METOCLOPRAMIDE HCL 10 MG TABLET PO SCH ×3 (05:27→17:20)
[2018-12-24 06:35] LABS: BASOPHILS % (AUTO) 0.1 % (0.0-2.0); EOSINOPHILS % (AUTO) 0.6 % (0.0-6.0); HEMATOCRIT 31 % (33-45); HEMOGLOBIN 10.7 g/dL (11.5-14.8); LYMPHOCYTES # (AUTO) 0.8 /CMM (0.8-4.8); LYMPHOCYTES % (AUTO) 5.9 % (20.0-44.0); MEAN CORPUSCULAR HGB CONC 34 g/dl (31.0-36.0); MEAN CORPUSCULAR VOLUME 95 fL (82-100); MONOCYTES % (AUTO) 7.1 % (2.0-12.0); NEUTROPHILS % (AUTO) 86.3 % (43.0-81.0); PLATELET COUNT (AUTO) 131 /CMM (150-450); RED BLOOD CELL COUNT(AUTO) 3.27 MIL/uL (4.0-5.2); WHITE BLOOD COUNT (AUTO) 13.9 K/uL (4.3-11.0)
--- NOTE | 2018-12-24 06:40 | NUR ---
RN MS CLOSING NOTES, PATIENT WITH EYES CLOSED, BREATHING EVEN AND UNLABORED, NO SOB/ACUTE DISTRESS NOTED, IV ACCESS IN LEFT CHEST AND VIVIEN MIDLINE PATENT AND INTACT, ON IVF D5 1/2 NS AT 75ML/HR INFUSING WELL AND PATIENT TOLERATED WELL, NO SIGNIFICANT CHANGE IN CONDITION, GT IN PLACED, AND INCREASED FEEDING TO 20ML/HR SINCE MIDNIGHT, AND PATIENT TOLERATED WELL, WITH MINIMAL RESIDUAL, BED LOCKED AND LOWEST POSITION, SEIZURE PRECAUTIONS IN PLACED, DRY AND CLEAN AT THIS TIME, CALL LIGHT W/I REACH, WILL ENDORSE CONTINUITY OF CARE TO ONCOMING NURSE.
[2018-12-24 07:04] LABS: CARBON DIOXIDE 23 mmol/L (21-32); CHLORIDE 111 mmol/L (98-107); CREATININE 0.7 mg/dL (0.6-1.3); GLUCOSE 183 mg/dL (74-106); MAGNESIUM 1.6 mg/dL (1.8-2.4); PHOSPHORUS 1.7 mg/dL (2.5-4.9); SODIUM SERUM 146 mmol/L (136-145); UREA NITROGEN, BLOOD 11 mg/dL (7-18)
[2018-12-24 07:35] LABS: POTASSIUM 2.6 mmol/L (3.5-5.1)
--- NOTE | 2018-12-24 07:39 | NUR ---
RN MS NOTES, RECEIVED A CALL FROM LAB AT THIS TIME ABOUT CRITICAL POTASSIUM LEVEL, GAVE REPORT AND ENDORSED TO VICTORINA GARCIA FOR CONTINUATION OF CARE.
[2018-12-24 08:00] VITALS: BP 131/77
--- NOTE | 2018-12-24 08:26 | NUR ---
RN OPENING NOTE PT WAS RECEIVED IN BED AT LOWEST AND LOCKED POSITION, OBTUNDED NONVERBAL, BREATHING EVEN AND UNLABORED, NO S/S OF PAIN OR DISTRESS NOTED, SAFETY PRECAUTIONS IN PLACE, CALL LIGHT WITHIN REACH, WILL MONITOR ACCORDINGLY
[2018-12-24] MEDS: Magnesium 1GM/D5W 100ML PREMIX 100 ML IV SCH ×2 (09:00→09:09)
[2018-12-24] MEDS: PANTOPRAZOLE 40 MG VIAL IV SCH (09:09)
[2018-12-24] MEDS: DONEPEZIL 5 MG TABLET GT SCH (09:10)
[2018-12-24] MEDS: CYANOCOBALAMIN 500 MCG TABLET PO SCH (09:10)
[2018-12-24] MEDS: CHOLECALCIFEROL 1,000 UNIT TABLET (VIT D3) PO SCH (09:10)
[2018-12-24] MEDS: MEMANTINE HCL 5 MG TABLET PO SCH ×2 (09:10→16:05)
[2018-12-24] MEDS: ENALAPRIL MALEATE (10 MG) 10 MG TABLET GT SCH ×2 (09:10→16:04)
[2018-12-24] MEDS: AMLODIPINE BESYLATE 2.5 MG TABLET GT SCH ×2 (09:10→16:05)
[2018-12-24] MEDS: NEUTRA PHOS 1 POWD.PACKET PO SCH ×2 (09:10→16:05)
[2018-12-24] MEDS: CARBAMAZEPINE 200 MG TABLET PO SCH ×2 (09:12→16:06)
[2018-12-24] MEDS: PILOCARPINE 2% OPTH DROP 15 ML BOTTLE EACHEYE SCH ×2 (09:12→16:04)
[2018-12-24] MEDS: ATROPINE SULFATE OPHTH SOLN 15 ML BOTTLE LEFTEYE SCH (09:13)
[2018-12-24] MEDS: TIMOLOL 0.5% SOLN OPHTH 5 ML BOTTLE EACHEYE SCH ×2 (09:13→16:04)
[2018-12-24 10:07] LABS: CARBAMAZEPINE (TEGRETOL) 11.1 ug/ml (4-11.9); PHENYTOIN (DILANTIN) 1.3 ug/ml (10.0-20.0)
[2018-12-24] MEDS: POTASSIUM CL. PREMIX PERIPHER. 50 ML IV SCH ×4 (11:00→14:30)
[2018-12-24 12:42] VITALS: BP 131/77
[2018-12-24] MEDS: IV D5/0.45 NACL 1,000 ML IV PRN (14:35)
[2018-12-24 16:00] VITALS: BP 116/66
[2018-12-24 16:05] VITALS: BP 116/66
[2018-12-24 17:55] LABS: ALBUMIN 1.8 g/dL (3.4-5.0); BILIRUBIN,DIRECT 0.6 mg/dL (0.0-0.2); BILIRUBIN,TOTAL 1.1 mg/dL (0.2-1.0); TOTAL PROTEIN, SERUM 5.6 g/dL (6.4-8.2)
--- NOTE | 2018-12-24 18:13 | NUR ---
AMA NOTE FAMILY LEAVING WITH PATIENT AMA DUE TO WANTING AND NEEDING TO GO TO [facility] FOR REHAB MEDICINE SO THEY CAN BE ADMITTED FOR POSSIBLE ERCP. ARTIST'S REPRESENTATIVE INFORMED PATIENT DAUGHTER ABOUT SITUATION AND SHE AGREED TO TAKE THE PATIENT OUT AMA. THEY REFUSED 1800 BLOOD SUGAR AND DID NOT WANT WOUND PHOTOS TO BE TAKEN. IV AND ID BAND WERE REMOVED. AMA PAPERWORK AND EXITCARE DISCUSSED AND HANDED TO THEM. BELONGINGS NOTED AND TAKEN BY THE FAMILY. ALL NEEDS WERE ATTENDED TO DURING THEIR STAY. Unique Id: [id number]
== END 2018-12-24 19:10 | disposition left against medical advice (07) | DRG 438 ==
LOC: ER 16:24 → MEDSG1 17:39 → TELE-TD 21:24 → TELE1 12-19 12:00 → MEDSG1 12-20 11:40 → TELE1 12-20 23:25 → MEDSG1 12-22 12:34
PROVIDERS: ADMIT Nurse Practitioner Acute Care; ATTEND Hospitalist
PROC: 05H533Z Insertion of Infusion Device into Right Subclavian Vein, Percutaneous Approach (ICD-10-PCS; principal; 2018-12-23)
DX: K85.10 Biliary acute pancreatitis without necrosis or infection (principal); A41.9 Sepsis, unspecified organism; G93.41 Metabolic encephalopathy; R53.2 Functional quadriplegia; N17.0 Acute kidney failure with tubular necrosis; E43 Unspecified severe protein-calorie malnutrition; R65.20 Severe sepsis without septic shock; E87.1 Hypo-osmolality and hyponatremia; N39.0 Urinary tract infection, site not specified; K82.1 Hydrops of gallbladder; Z86.73 Personal history of transient ischemic attack (TIA), and cerebral infarction without residual deficits; E83.42 Hypomagnesemia; Z93.1 Gastrostomy status; E86.0 Dehydration; E78.5 Hyperlipidemia, unspecified; E83.39 Other disorders of phosphorus metabolism; E87.6 Hypokalemia; I10 Essential (primary) hypertension; I25.10 Atherosclerotic heart disease of native coronary artery without angina pectoris; R13.10 Dysphagia, unspecified; Z79.4 Long term (current) use of insulin; M24.574 Contracture, right foot; M24.575 Contracture, left foot; R74.0 Nonspecific elevation of levels of transaminase and lactic acid dehydrogenase [LDH]; K57.10 Diverticulosis of small intestine without perforation or abscess without bleeding; K80.50 Calculus of bile duct without cholangitis or cholecystitis without obstruction; E80.6 Other disorders of bilirubin metabolism; E88.09 Other disorders of plasma-protein metabolism, not elsewhere classified; R00.0 Tachycardia, unspecified; Z91.14 Patient's other noncompliance with medication regimen; G93.89 Other specified disorders of brain; G40.909 Epilepsy, unspecified, not intractable, without status epilepticus; M62.58 Muscle wasting and atrophy, not elsewhere classified, other site; B96.20 Unspecified Escherichia coli [E. coli] as the cause of diseases classified elsewhere; Z68.21 Body mass index [BMI] 21.0-21.9, adult; G30.9 Alzheimer's disease, unspecified; F02.80 Dementia in other diseases classified elsewhere, unspecified severity, without behavioral disturbance, psychotic disturbance, mood disturbance, and anxiety; Z87.440 Personal history of urinary (tract) infections; Z66 Do not resuscitate; K29.80 Duodenitis without bleeding; E11.9 Type 2 diabetes mellitus without complications
CPT/HCPCS: 36415; 36569; 36600; 70450-TC; 71045-TC; 74018; 74181-TC; 76705-TC; 80048-TC; 80053-TC; 80061-TC; 80076-TC; 80156-TC; 80185-TC; 81000-TC; 82550-TC; 82570-TC; 82962-TC; 83690-TC; 83735-TC; 83970; 84100-TC; 84155; 84155-TC; 84165; 84300-TC; 84484-TC; 85025-TC; 85730-TC; 87081-TC; 87086-TC; 87186-TC; 93307-TC; 94799-TC; A4216; C9113; G0378; J0360; J1165; J1815; J1956; J2060; J2405; J3475; J3480; J3490; J7030; J7040; J7050; J8597